=== PATIENT | female | born 1965 | race Caucasian/White ===

== ENCOUNTER 2018-08-23 12:24 | Outpatient (REF) | payer SELFPAY ==
[2018-08-23 20:16] LABS: ALT 29 U/L (12-78); AST 22 U/L (15-37); Albumin 3.9 g/dL (3.4-5.0); Alkaline Phosphatase 133 U/L (46-116); Anion Gap 10.3 mmol/L (3-11); BUN 14 mg/dL (7-18); Bilirubin, Total 0.3 mg/dL (0.2-1.0); CO2 28.7 mmol/L (21.0-32.0); CREATININE 0.68 mg/dL (0.55-1.02); Calcium 9.6 mg/dL (8.5-10.1); Chloride 104 mmol/L (98-107); Glucose 96 mg/dL (70-100); Potassium 3.9 mmol/L (3.5-5.1); Sodium 143 mmol/L (136-145); TSH 5.38 uIU/mL (0.358-3.74); Total Protein 7.9 g/dL (6.4-8.2)
[2018-08-24 09:15] LABS: Hemoglobin A1C 6.2 % (4.5-6.2)
[2018-08-24 17:04] LABS: COMMENT (LAB VIEW ONLY) 16.63 mg/dL; Microalb ug/mg Crea 87.8 ug/mg Cr
[2018-08-24 17:09] LABS: Iron 148 ug/dL (50-175)
[2018-08-24 18:19] LABS: PROTEIN < 6.0 mg/dL
[2018-08-24 18:47] LABS: Ferritin 16 ng/mL (8-388)
[2018-08-25 10:08] LABS: Hepatitis C Ab w Rflx HCV PCR Negative (NEGAT)
== END 2018-08-23 12:44 ==
LOC: NCHCN 12:24
PROVIDERS: PCP Internal Medicine; Visit Provider Nurse Practitioner Family
DX: I10 Essential (primary) hypertension (principal); E03.9 Hypothyroidism, unspecified; D50.9 Iron deficiency anemia, unspecified; E78.5 Hyperlipidemia, unspecified; R73.9 Hyperglycemia, unspecified; Z11.59 Encounter for screening for other viral diseases
CPT/HCPCS: 80053; 86803; 82043; 82565; 82570; 82728; 83036; 83540; 84156; 84443

== ENCOUNTER 2018-09-30 16:49 | Outpatient (REF) | payer SELFPAY ==
[2018-09-30 20:17] LABS: TSH 2.35 uIU/mL (0.358-3.74); Vitamin B12 892 pg/mL (193-986)
[2018-10-02 08:59] LABS: Vitamin D 25 Total 24.8 ng/ml (30-100)
== END 2018-09-30 17:09 ==
LOC: NCHCN 16:49
PROVIDERS: PCP Internal Medicine; Visit Provider Nurse Practitioner Family
DX: E03.9 Hypothyroidism, unspecified (principal); R10.2 Pelvic and perineal pain
CPT/HCPCS: 82306; 87077; 82607; 84443; 87086; 87186; 87480; 87510; 87660

== ENCOUNTER 2020-06-06 13:20 | Outpatient (REF) | payer SELFPAY ==
[2020-06-12 03:02] LABS: SARS-CoV-2 RNA Undetected (Undetected); SARS-CoV-2 Specimen Source Nasal
== END 2020-06-06 13:40 ==
LOC: NCHCN 13:20
PROVIDERS: PCP Internal Medicine; Visit Provider Nurse Practitioner Family
DX: Z20.828 Contact with and (suspected) exposure to other viral communicable diseases (principal)
CPT/HCPCS: U0003

== ENCOUNTER 2020-06-25 21:21 | Outpatient (REF) | payer SELFPAY ==
[2020-06-27 18:43] LABS: COVID-19 RT-PCR UVMMC Result Negative (Negative)
== END 2020-06-25 21:41 ==
LOC: NCHCN 21:21
PROVIDERS: PCP Internal Medicine; Visit Provider Nurse Practitioner Family
DX: Z20.828 Contact with and (suspected) exposure to other viral communicable diseases (principal)
CPT/HCPCS: U0003

== ENCOUNTER 2020-07-01 12:01 | Outpatient (REF) | payer SELFPAY ==
[2020-07-05 10:09] LABS: COVID-19 RT-PCR Result NEGATIVE (Negative)
== END 2020-07-01 12:21 ==
LOC: NCHCN 12:01
PROVIDERS: PCP Internal Medicine; Visit Provider Nurse Practitioner Family
DX: Z20.828 Contact with and (suspected) exposure to other viral communicable diseases (principal)
CPT/HCPCS: U0003

== ENCOUNTER 2020-07-08 19:19 | Outpatient (REF) | payer SELFPAY ==
[2020-07-11 21:24] LABS: COVID-19 RT-PCR Result NEGATIVE (Negative)
== END 2020-07-08 19:39 ==
LOC: NCHCN 19:19
PROVIDERS: PCP Internal Medicine; Visit Provider Nurse Practitioner Family
DX: Z11.59 Encounter for screening for other viral diseases (principal)
CPT/HCPCS: U0003

== ENCOUNTER 2020-07-15 16:17 | Outpatient (REF) | payer SELFPAY ==
[2020-07-18 00:11] LABS: COVID-19 RT-PCR Result NEGATIVE (Negative)
== END 2020-07-15 16:37 ==
LOC: NCHCN 16:17
PROVIDERS: PCP Internal Medicine; Visit Provider Nurse Practitioner Family
DX: Z11.59 Encounter for screening for other viral diseases (principal)
CPT/HCPCS: U0003

== ENCOUNTER 2020-07-22 09:33 | Outpatient (REF) | payer SELFPAY ==
--- OUTSIDE RECORDS SUMMARY | 2020-07-22 09:36 | XMS_ITS ---
:1965 Author Care Team Providers Name Role Phone AR GUADALUPE MD Primary Care Provider [phone] PASTORA LOMBARDI MD Chairman Of The Board [phone] Allergies Code Code System Name Reaction Severity Status Onset DARVOCET-N ? ? Active ? Medications Name Status Start Date Stop Date ? ? amoxicillin 500 mg capsule Completed 08/20/200509/08 1 (one) Cap: TID Celexa 20 mg tablet Completed 05/28/2009 05/28/2009 1 (one) Tablet: QD fluoxetine 20 mg capsule Completed 12/23/2011 012 1 Capsule: daily hydrocodone 5 mg-acetaminophen 325 mg tablet Completed 02/10/2013 1 (one) Tablet: every four to six hours as needed ibuprofen 800 mg tablet Completed 11/17/2011 05/16/20 15 1 (one) Tablet: tid - three times a day as needed levothyroxine Active ? Not available Lexapro 10 mg tablet Completed 07/29/2005 10/21/2005 1 (one) Tablet: Daily lorazepam 0.5 mg tablet Completed 2016 06/25/20 16 1 (one) Tablet: as directed Lotrel Active ? Not available Maxalt 5 mg tablet Completed 02/03/2005 02/17/2005 nicotine 21 mg/24 hr daily transdermal patch Completed 08/201306/06/2014 1 (one) Patch 24HR Patch 24HR: daily penicillin V potassium 250 mg tablet Completed 11/03/2004 02/17/2005 1 Tablet: TID Protonix 40 mg tablet,delayed release Completed 04/24/2013 04/24/[address]: daily Proventil HFA 90 mcg/actuation aerosol inhaler Completed 0 02/10/2013 05/16/2015 2 (two) puff(s): four times daily, as needed Toprol XL Active ? Not available trazodone 50 mg tablet Completed 06/30/2011 1 1 (one) Tablet: daily Tylenol-Codeine #3 300 mg-30 mg tablet Completed 2 07/12/2012 1-2 Tablet: Every 6 hours as needed Wellbutrin SR 150 mg tablet, 12 hr sustained-release Completed 07/02/2014 05/16/2015 1 (one) Tablet ER 12HR: three times daily Zantac 150 mg tablet Completed 10/21/2005 11/11/2007 1 (one) Tablet: BID Zithromax Z-Teodoro 250 mg tablet Completed 02/10/2013 as directed Tablet: daily Problems Name Status Onset Date Source ? Body Mass Index 30+ - Obesity Active ? Hi story Anemia Active ? History Generalized Anxiety Disorder Active ? His tory Nicotine Dependence Active ? History Depressive Disorder Active ? History Migraine Active ? History Carpal Tunnel Syndrome Active ? History Gastroesophageal Reflux Disease Active ? History Disorder of Digestive System Active ? His tory Senile Hyperkeratosis Active ? History Shoulder Joint Pain Active ? History Neck Pain Active ? History Lumbosacral Radiculopathy Active ? Histor y Backache Active ? History Pain in Limb Active ? History Asthenia Active ? History Lack of Energy Active ? History Symptom of Skin and Integumentary Tissue Active ? History Disorder of Hyperalimentation Active ? Hi story Speech Problem Active ? History Cough Active ? History Right Lower Quadrant Pain Active ? Histor y Gynecologic Examination Active ? History Procedure by Method Active ? History Pain in Left Knee Active ? History Bursitis of Left Hip Active ? History Procedures Date Name Performed by ? 07/26/2000 Tubal Ligation Information not avai lable ? Carpal Tunnel Surgery Information not av ailable 04/17/2020 US, Pelvis, Transabdominal + [facility] (Internal) Transvaginal [address] [place] [address] (Work Place) Results Lab Results Date Name Specimen Result Interpretation Description Value Range Status Address ? 09/18/2017 Venipuncture BLD ? Venpn* ? ? Final [facility] L [facility] (Internal) : [address] 09/18/2017 Microalbumin, UR High Malb 82.7 mg/L 5.0-16.7 F inal [place] Urine mg/L [facility] (Internal) : [address], [place] ? ? UR High U-crea 214 mg/dL 30-125 Final [place] , Spot mg/dL [facility] (Internal) : [address] t ? ? UR High Microa 38.6 ug/mg 0.0-30.0 Final Nor th lb/crea ug/mg [facility] (Internal) : [address] 09/18/2017 Lipid Panel, S High Chol 220 mg/dL 50-200 Tika l [place] Serum mg/dL [facility] (Internal) : [address] t ? ? S High Trig 297 mg/dL 10-150 Final [place] mg/dL [facility] (Internal) : [address] t ? ? S Low Hdl 31 mg/dL 40-60 Final [place] mg/dL [facility] (Internal) : [address] t ? ? S ? Ldl 130 mg/dL 0-130 Final [place] mg/dL [facility] (Internal) : [address] 09/18/2017 CMP, Serum or S ? g/r 97 mg/dL 74-106 Tika l [place] Plasma mg/dL [facility] (Internal) : [address] t ? ? S ? Bun 15 mg/dL 7-17 Final [place] mg/dL [facility] (Internal) : [address] t ? ? S ? Crea 0.70 mg/dL 0.52-1.04 Final Nor th mg/dL [facility] (Internal) : [address] t ? ? S ? Ca 9.8 mg/dL 8.4-10.2 Final [place] mg/dL [facility] (Internal) : [address] t ? ? S ? Na 144 mmol/L 137-145 Final [place] mmol/L [facility] (Internal) : [address] t ? ? S ? K 3.8 mmol/L 3.5-5.1 Final [place] mmol/L [facility] (Internal) : [address] t ? ? S ? Cl 104 mmol/L 98-107 Final [place] mmol/L [facility] (Internal) : [address] t ? ? S ? Tco2 28.0 mmol/L 22.0-30.0 Final No rth mmol/L [facility] ab (Internal) : [address] t ? ? S ? Tp 8.0 g/dL 6.3-8.2 Final [place] g/dL [facility] (Internal) : [address] t ? ? S ? Alb 4.3 g/dL 3.5-5.0 Final [place] g/dL [facility] (Internal) : [address] t ? ? S ? Tbil 0.4 mg/dL 0.2-1.3 Final [place] mg/dL [facility] (Internal) : [address] t ? ? S ? Alp 107 U/L 50-136 Final [place] U/L [facility] (Internal) : [address] t ? ? S ? Alt 31 U/L 9-52 U/L Final [place] (Sgpt) [facility] (Internal) : [address] t ? ? S ? Ast 28 U/L 14-36 U/L Final [place] (Sgot) [facility] (Internal) : [address] t 09/18/2017 TSH, Serum or S High Tsh 7.00 0.47-4.68 Fin [facility] Plasma u[IU]/mL u[IU]/mL [facility] (Internal) : [address] t 08/06/2017 Venipuncture BLD ? Venpn* ? ? Final [facility] (Internal) : [address] t 08/06/2017 Culture, BLD ? Final microbiolog ? Final [place] Blood y results [facility] (Internal) : [address] t 08/06/2017 Lactic Acid, S ? La 2.1 mmol/L 0.7-2.1 Fi nal [place] Blood mmol/L [facility] (Internal) : [address] t 08/06/2017 Culture, BLD ? Final microbiolog ? Final [place] Blood y results [facility] (Internal) : [address] t 08/06/2017 RBC BLD ? Aniso small ? Final [place] Morphology, [facility] (Internal) : [address] 08/06/2017 BMP, Serum or S High g/r 117 mg/dL 74-106 Fin al [place] Plasma mg/dL [facility] (Internal) : [address] t ? ? S ? Bun 9 mg/dL 7-17 Final [place] mg/dL [facility] (Internal) : [address] t ? ? S ? Crea 0.60 mg/dL 0.52-1.04 Final Nor th mg/dL [facility] (Internal) : [address] t ? ? S ? Ca 8.9 mg/dL 8.4-10.2 Final [place] mg/dL [facility] (Internal) : [address] t ? ? S Low Na 135 mmol/L 137-145 Final [place] mmol/L [facility] (Internal) : [address] t ? ? S Low K 3.4 mmol/L 3.5-5.1 Final [place] mmol/L [facility] (Internal) : [address] t ? ? S ? Cl 104 mmol/L 98-107 Final [place] mmol/L [facility] (Internal) : [address] t ? ? S ? Tco2 22.0 mmol/L 22.0-30.0 Final No rth mmol/L [facility] (Internal) : [address] 08/06/2017 CBC W/ Auto BLD ? Wbc 9.1 10*3/uL 5.0-10.0 F inal [place] Diff 10*3/uL [facility] (Internal) : [address] t ? ? BLD ? Rbc 4.78 4.10-5.30 Final [place] 10*6/uL 10*6/uL [facility] (Internal) : [address] ? ? BLD ? Hgb 12.4 g/dL 12.0-16.0 Final Nort h g/dL [facility] ab (Internal) : [address] ? ? BLD ? Hct 38.3 % 37.0-47.0 Final [place] % [facility] ab (Internal) : [address] ? ? BLD ? Mcv 80.1 fL 80.0-96.0 Final [facility] L ab (Internal) : [address] ? ? BLD Low Mch 25.9 pg 26.0-32.0 Final [facility] L ab (Internal) : [address] ? ? BLD ? Mchc 32.4 g/dL 31.0-35.0 Final Nort h g/dL [facility] ab (Internal) : [address] ? ? BLD High Rdw 15.8 % 11.5-14.5 Final [facility] L ab (Internal) : [address] ? ? BLD ? Plt 217 10*3/uL 130-450 Final Nort h 10*3/uL [facility] L ab (Internal) : [address] ? ? BLD ? Anc 6.36 ? Final [place] 10*3/uL [facility] (Internal) : [address] [place] ? ? BLD ? Neutro 70.3 % 40.0-75.0 Final [facility] L ab (Internal) : [address] ? ? BLD ? Lymph 20.7 % 20.0-50.0 Final [facility] L ab (Internal) : [address] ? ? BLD ? Arenac 7.5 % 2.0-10.0 Final [facility] ab (Internal) : [address] ? ? BLD Low Eos 0.8 % 1.0-6.0 % Final [facility] ab (Internal) : [address] ? ? BLD ? Baso 0.4 % 0.0-1.0 % Final [facility] ab (Internal) : [address] ? ? BLD ? Ig 0.3 % 0.0-0.9 % Final [facility] ab (Internal) : [address] 08/06/2017 Influenza NASAL ? Final microbiolog ? Final [place] (A+B) Ag, y results Coun try Qual, Rapid, Hosp ital Lab Nose (Internal) : [address], [place] 08/06/2017 Culture, UR ? Final microbiolog ? Final [place] Urine y results [facility] ab (Internal) : [address] 08/06/2017 sensitivities MISC ? Sens* ? ? Final [place] [I] [facility] ab (Internal) : [address] 08/06/2017 Urinalysis, UR ? UA-WBC 0-3 [hpf] 0-3 [hpf] F inal [place] Microscopic [facility] L ab (Internal) : [address] t ? ? UR ? UA-RBC 0-2 [hpf] 0-2 [hpf] Final [facility] ab (Internal) : [address] t ? ? UR ABNORMAL UA-david many [hpf] none seen Final [place] teria [hpf] [facility] ab (Internal) : [address] t ? ? UR ? UA-epi rare [hpf] none seen Final No rth thelial [hpf] [facility] ab (Internal) : [address] t ? ? UR ABNORMAL UA-muc rare [hpf] none seen Final [place] us [hpf] [facility] ab (Internal) : [address] 08/06/2017 Urinalysis, UR ? UA-col yellow pale Final [place] Dipstick, or yellow [facility] Reflex Micro Hosp ital Lab (Internal) : [address] t ? ? UR ABNORMAL UA-aden hazy clear Final [place] ear [facility] L ab (Internal) : [address] t ? ? UR ? UA-spe 1.015 1.003-1.0 Final [place] c Grav 35 [facility] L ab (Internal) : [address] t ? ? UR ? UA-pH 7.0 [pH] 4.6-8.0 Final [place] [pH] [facility] L ab (Internal) : [address] t ? ? UR ? UA-keiko negative negative Final [place] k Est [facility] L ab (Internal) : [address] t ? ? UR ABNORMAL UA-nit positive negative Final [facility] rite [facility] L ab (Internal) : [address], [place] ? ? UR ? UA-pro negative negative Final [place] t [facility] L ab (Internal) : [address] t ? ? UR ? UA-glu negative negative Final [place] c [facility] ab (Internal) : [address] ? ? UR ? UA-ket negative negative Final [place] one [facility] L ab (Internal) : [address] t ? ? UR ? UA-uro normal normal Final [place] gisella [facility] L ab (Internal) : [address] ? ? UR ? UA-gisella negative negative Final [place] i [facility] L ab (Internal) : [address] ? ? UR ? UA-blo negative negative Final [place] od [facility] L ab (Internal) : [address] t Past Encounters 04/17/2020 Pain in Pelvis Brad Quezada MD: [address] [place] [phone], Ph. Social History Tobacco Smoking Status Former Smoker Vaccine List Vaccine Type influenza, seasonal, injectable 06/06/2014?0.5 mL influenza, seasonal, injectable, preserv ative free 04/17/2011?0.5 mL tetanus toxoid, adsorbed 07/26/1994 Plan of Care Reminders Provider Appointments None ? ? recorded. Lab None ? ? recorded. Referral None ? ? recorded. Procedures None ? ? recorded. Surgeries None ? ? recorded. Imaging None ? ? recorded. Vitals 04/17/2020 01:20PM New Patient 30 Height 154.94 cm 10/16/2016 Height Weight 154.94 cm 84.46 kg 09/01/2016 Height Weight Blood Pressure 154.94 cm 84.46 kg 140/82 mm[Hg] 2016 Height Weight Blood Pressure 154.94 cm 84.82 kg 148/80 mm[Hg] 2015 Height Weight Blood Pressure 154.94 cm 85.77 kg 136/78 mm[Hg] 05/16/2015 Height Weight Blood Pressure 154.94 cm 82.55 kg 144/92 mm[Hg] 06/06/2014 Height Weight Blood Pressure 154.31 cm 82.1 kg 126/68 mm[Hg] 12/20/2013 Weight Blood Pressure 77.75 kg 134/86 mm[Hg] 11/21/2013 Height Weight Blood Pressure 154.31 cm 83.19 kg 154/88 mm[Hg] 05/31/2013 Height Weight Blood Pressure 154.31 cm 82.42 kg 138/72 mm[Hg] 04/24/2013 Height Weight Blood Pressure 154.31 cm 84.41 kg 150/70 mm[Hg] 02/10/2013 Weight Blood Pressure 85.87 kg 142/80 mm[Hg] 11/07/2012 Weight Blood Pressure 87.72 kg 128/72 mm[Hg] 10/07/2012 Weight Blood Pressure 87.77 kg 128/76 mm[Hg] 07/12/2012 Height Weight Blood Pressure 154.31 cm 85.18 kg 130/90 mm[Hg] 05/05/2012 Height Weight Blood Pressure 154.94 cm 85.37 kg 126/64 mm[Hg] 03/01/2012 Height Weight Blood Pressure 154.94 cm 85.73 kg 150/85 mm[Hg] 01/15/2012 Height Weight Blood Pressure 154.94 cm 85.73 kg 142/98 mm[Hg] 01/11/2012 Height Weight Blood Pressure 154.94 cm 86 kg 120/80 mm[Hg] 12/23/2011 Weight Blood Pressure 86.18 kg 142/92 mm[Hg] 12/03/2011 Height Weight Blood Pressure 154.94 cm 87.5 kg 130/86 mm[Hg] 11/17/2011 Height Weight Blood Pressure 154.94 cm 87.5 kg 142/90 mm[Hg] 09/24/2011 Weight 85.73 kg 07/31/2011 Weight Blood Pressure 85.73 kg 150/88 mm[Hg] 07/29/2011 Height Weight 154.94 cm 85.28 kg 06/30/2011 Weight Blood Pressure 84.82 kg 126/80 mm[Hg] 05/29/2011 Weight Blood Pressure 84.28 kg 136/80 mm[Hg] 05/13/2011 Height Weight Blood Pressure 156.21 cm 82.51 kg 130/90 mm[Hg] 04/30/2011 Height Weight Blood Pressure 154.94 cm 80.74 kg 136/92 mm[Hg] 04/17/2011 Weight Blood Pressure 82.19 kg 138/90 mm[Hg] 04/06/2011 Blood Pressure 120/78 mm[Hg] 03/17/2011 Weight Blood Pressure 78.38 kg 124/82 mm[Hg] 02/24/2011 Height Weight Blood Pressure 156.21 cm 78.52 kg 140/80 mm[Hg] 02/11/2011 Height Weight 156.21 cm 77.02 kg 01/16/2011 Height Weight Blood Pressure 157.48 cm 76.7 kg 132/78 mm[Hg] 12/26/2010 Weight Blood Pressure 74.21 kg 116/80 mm[Hg] 12/16/2010 Weight Blood Pressure 74.57 kg 122/90 mm[Hg] 12/01/2010 Height Weight Blood Pressure 157.48 cm 74.93 kg 124/80 mm[Hg] 08/05/2010 Weight Blood Pressure 73.94 kg 120/74 mm[Hg] 10/18/2009 Weight Blood Pressure 77.56 kg 136/90 mm[Hg] 09/18/2009 Height Weight Blood Pressure 154.94 cm 75.75 kg 108/68 mm[Hg] 05/28/2009 Weight Blood Pressure 75.75 kg 128/84 mm[Hg] 04/16/2009 Blood Pressure 128/80 mm[Hg] 03/21/2009 Height Weight Blood Pressure 154.94 cm 77.11 kg 130/82 mm[Hg] 11/25/2007 Height Weight Blood Pressure 153.67 cm 77.56 kg 130/80 mm[Hg] 11/11/2007 Weight Blood Pressure 78.93 kg 114/76 mm[Hg] 02/17/2006 Weight Blood Pressure 80.74 kg 112/84 mm[Hg] 02/15/2006 Height Weight Blood Pressure 154.94 cm 80.29 kg 108/70 mm[Hg] 11/18/2005 Weight Blood Pressure 78.02 kg 118/80 mm[Hg] 10/21/2005 Weight Blood Pressure 79.83 kg (1) 136/90 mm[Hg] (2) 132/90 mm[Hg] 09/09/2005 Weight Blood Pressure 78.02 kg 136/78 mm[Hg] 08/20/2005 Weight Blood Pressure 76.2 kg 104/64 mm[Hg] 07/29/2005 Weight Blood Pressure 77.11 kg 142/84 mm[Hg] 05/04/2005 Weight Blood Pressure 79.38 kg 132/72 mm[Hg] 04/07/2005 Weight Blood Pressure 77.11 kg 108/68 mm[Hg] 02/17/2005 Weight Blood Pressure 78.47 kg 120/70 mm[Hg] 02/03/2005 Weight Blood Pressure 78.02 kg 126/80 mm[Hg] 10/22/2004 Weight Blood Pressure 82.55 kg 130/80 mm[Hg] 08/22/2004 Height Weight Blood Pressure 154.94 cm 81.65 kg 112/68 mm[Hg]
[2020-07-24 21:31] LABS: COVID-19 RT-PCR Result NEGATIVE (Negative)
== END 2020-07-22 09:53 ==
LOC: NCHCN 09:33
PROVIDERS: PCP Internal Medicine; Visit Provider Nurse Practitioner Family
DX: Z11.59 Encounter for screening for other viral diseases (principal)
CPT/HCPCS: U0003

== ENCOUNTER 2020-08-05 12:58 | Outpatient (REF) | payer SELFPAY ==
[2020-08-06 21:54] LABS: COVID-19 RT-PCR Result NEGATIVE (Negative)
== END 2020-08-05 13:18 ==
LOC: NCHCN 12:58
PROVIDERS: PCP Internal Medicine; Visit Provider Internal Medicine
DX: Z11.52 Encounter for screening for COVID-19 (principal)
CPT/HCPCS: U0003

== ENCOUNTER 2020-09-09 16:37 | Outpatient (REF) | payer SELFPAY ==
[2020-09-10 19:36] LABS: COVID-19 RT-PCR UVMMC Result Negative (Negative)
== END 2020-09-09 16:38 | disposition home or self-care (01) ==
LOC: NCHCN 16:37
PROVIDERS: PCP Internal Medicine; Visit Provider Nurse Practitioner Family
DX: Z20.822 Contact with and (suspected) exposure to COVID-19 (principal)
CPT/HCPCS: U0003

== ENCOUNTER 2020-09-16 16:24 | Outpatient (REF) | payer SELFPAY ==
[2020-09-17 15:05] LABS: COVID-19 RT-PCR UVMMC Result Negative (Negative)
== END 2020-09-16 16:25 | disposition home or self-care (01) ==
LOC: NCHCN 16:24
PROVIDERS: PCP Internal Medicine; Visit Provider Physician Assistant
DX: Z20.822 Contact with and (suspected) exposure to COVID-19 (principal)
CPT/HCPCS: U0003

== ENCOUNTER 2020-09-23 13:46 | Outpatient (REF) | payer SELFPAY ==
[2020-09-24 15:01] LABS: COVID-19 RT-PCR UVMMC Result Negative (Negative)
== END 2020-09-23 13:47 | disposition home or self-care (01) ==
LOC: NCHCN 13:46
PROVIDERS: PCP Internal Medicine; Visit Provider Physician Assistant
DX: Z20.822 Contact with and (suspected) exposure to COVID-19 (principal)
CPT/HCPCS: U0003

== ENCOUNTER 2020-09-30 19:52 | Outpatient (REF) | payer SELFPAY ==
[2020-10-01 12:26] LABS: COVID-19 RT-PCR UVMMC Result Negative (Negative)
== END 2020-09-30 19:53 | disposition home or self-care (01) ==
LOC: NCHCN 19:52
PROVIDERS: PCP Internal Medicine; Visit Provider Internal Medicine
DX: Z20.822 Contact with and (suspected) exposure to COVID-19 (principal)
CPT/HCPCS: U0003

== ENCOUNTER 2020-10-07 10:54 | Outpatient (REF) | payer SELFPAY ==
[2020-10-08 11:02] LABS: COVID-19 RT-PCR UVMMC Result Negative (Negative)
== END 2020-10-07 10:55 | disposition home or self-care (01) ==
LOC: NCHCN 10:54
PROVIDERS: PCP Internal Medicine; Visit Provider Internal Medicine
DX: Z20.822 Contact with and (suspected) exposure to COVID-19 (principal)
CPT/HCPCS: U0003

== ENCOUNTER 2020-10-15 11:39 | Outpatient (REF) | payer SELFPAY ==
[2020-10-16 14:31] LABS: COVID-19 RT-PCR UVMMC Result Negative (Negative)
== END 2020-10-15 11:40 | disposition home or self-care (01) ==
LOC: NCHCN 11:39
PROVIDERS: PCP Internal Medicine; Visit Provider Internal Medicine
DX: Z20.822 Contact with and (suspected) exposure to COVID-19 (principal)
CPT/HCPCS: U0003

== ENCOUNTER 2020-10-28 11:53 | Outpatient (REF) | payer SELFPAY ==
[2020-10-30 18:40] LABS: COVID-19 RT-PCR UVMMC Result Negative (Negative)
== END 2020-10-28 11:54 | disposition home or self-care (01) ==
LOC: NCHCN 11:53
PROVIDERS: PCP Internal Medicine; Visit Provider Internal Medicine
DX: Z20.822 Contact with and (suspected) exposure to COVID-19 (principal)
CPT/HCPCS: U0003

== ENCOUNTER 2020-11-11 09:53 | Outpatient (REF) | payer SELFPAY ==
[2020-11-12 01:00] LABS: COVID-19 RT-PCR UVMMC Result Negative (Negative)
== END 2020-11-11 09:54 | disposition home or self-care (01) ==
LOC: NCHCN 09:53
PROVIDERS: PCP Internal Medicine; Visit Provider Nurse Practitioner Family
DX: Z20.822 Contact with and (suspected) exposure to COVID-19 (principal)
CPT/HCPCS: U0003

== ENCOUNTER 2020-11-19 14:52 | Outpatient (REF) | payer SELFPAY ==
[2020-11-20 10:18] LABS: COVID-19 RT-PCR UVMMC Result Negative (Negative)
== END 2020-11-19 14:53 | disposition home or self-care (01) ==
LOC: NCHCN 14:52
PROVIDERS: PCP Internal Medicine; Visit Provider Nurse Practitioner Family
DX: Z20.822 Contact with and (suspected) exposure to COVID-19 (principal)
CPT/HCPCS: U0003

== ENCOUNTER 2020-11-25 15:15 | Outpatient (REF) | payer SELFPAY ==
[2020-11-25 20:05] LABS: Iron 46 ug/dL (50-170)
[2020-11-25 20:11] LABS: ALT 35 U/L (14-59); AST 21 U/L (15-37); Albumin 3.6 g/dL (3.4-5.0); Alkaline Phosphatase 105 U/L (46-116); Anion Gap 9.8 mmol/L (3-11); BUN 18 mg/dL (7-18); Bilirubin, Total 0.3 mg/dL (0.2-1.0); CO2 30.2 mmol/L (21.0-32.0); CREATININE 0.6 mg/dL (0.55-1.02); Calcium 8.8 mg/dL (8.5-10.1); Calculated LDL 132 mg/dL (<100); Chloride 107 mmol/L (98-107); Cholesterol 219 mg/dL (<200); Glucose 102 mg/dL (74-106); HDL Cholesterol 33 mg/dL (40-60); Potassium 3.6 mmol/L (3.5-5.1); Sodium 147 mmol/L (136-145); TSH 19.48 uIU/mL (0.36-3.74); Total Protein 7.2 g/dL (6.4-8.2); Triglyceride 271 mg/dL (<150)
[2020-11-25 20:39] LABS: FREE T4 0.77 ng/dL (0.76-1.46)
[2020-11-26 16:40] LABS: T3, Total 132 ng/dL (97-169)
[2020-11-26 17:27] LABS: Thyroglobulin Antibody 27 U/mL (<=60); Thyroperoxidase Antibody >1300 U/mL (<=60)
[2020-11-27 13:09] LABS: COVID-19 RT-PCR UVMMC Result Negative (Negative)
== END 2020-11-25 15:16 | disposition home or self-care (01) ==
LOC: NCHCN 15:15
PROVIDERS: PCP Internal Medicine; Visit Provider Nurse Practitioner Family
DX: D50.9 Iron deficiency anemia, unspecified (principal); E03.9 Hypothyroidism, unspecified; E78.5 Hyperlipidemia, unspecified; I10 Essential (primary) hypertension; Z20.822 Contact with and (suspected) exposure to COVID-19
CPT/HCPCS: 80053; 80061; 86376; U0003; 83540; 84439; 84443; 84480

== ENCOUNTER 2021-05-12 09:09 | Outpatient (REF) | payer OTHER, SELFPAY ==
[2021-05-12 20:28] LABS: ALT 31 U/L (14-59); AST 20 U/L (15-37); Albumin 3.6 g/dL (3.4-5.0); Alkaline Phosphatase 97 U/L (46-116); BUN 15 mg/dL (7-18); Bilirubin, Total 0.3 mg/dL (0.2-1.0); CREATININE 0.7 mg/dL (0.55-1.02); Calcium 8.8 mg/dL (8.5-10.1); Calculated LDL 150 mg/dL (<100); Chloride 105 mmol/L (98-107); Cholesterol 237 mg/dL (<200); Glucose 101 mg/dL (74-106); HDL Cholesterol 31 mg/dL (40-60); Potassium 3.9 mmol/L (3.5-5.1); Sodium 142 mmol/L (136-145); TSH (W/Ref FT4) 13.25 uIU/mL (0.36-3.74); Total Protein 7.2 g/dL (6.4-8.2); Triglyceride 281 mg/dL (<150)
[2021-05-12 21:25] LABS: FREE T4 0.88 ng/dL (0.76-1.46)
== END 2021-05-12 09:10 | disposition home or self-care (01) ==
LOC: NCHCN 09:09
PROVIDERS: PCP Internal Medicine; Visit Provider Nurse Practitioner Family
DX: I10 Essential (primary) hypertension (principal); E78.5 Hyperlipidemia, unspecified; E03.9 Hypothyroidism, unspecified
CPT/HCPCS: 80053; 80061; 84439; 84443

== ENCOUNTER 2021-07-14 10:52 | Outpatient (REF) | payer OTHER, SELFPAY ==
[2021-07-14 21:14] LABS: TSH 7.44 uIU/mL (0.36-3.74)
== END 2021-07-14 10:53 | disposition home or self-care (01) ==
LOC: NCHCN 10:52
PROVIDERS: PCP Internal Medicine; Visit Provider Nurse Practitioner Family
DX: E03.9 Hypothyroidism, unspecified (principal)
CPT/HCPCS: 84443

== ENCOUNTER 2021-09-15 16:37 | Outpatient (REF) | payer OTHER, SELFPAY ==
[2021-09-15 20:23] LABS: TSH (W/Ref FT4) 1.68 uIU/mL (0.36-3.74)
== END 2021-09-15 16:38 | disposition home or self-care (01) ==
LOC: NCHCN 16:37
PROVIDERS: PCP Internal Medicine; Visit Provider Nurse Practitioner Family
DX: E03.9 Hypothyroidism, unspecified (principal)
CPT/HCPCS: 84443

== ENCOUNTER 2021-09-26 12:18 | Outpatient (REF) | payer OTHER, SELFPAY ==
[2021-09-28 14:44] LABS: COVID-19 RT-PCR UVMMC Result Negative (Negative)
== END 2021-09-26 12:19 | disposition home or self-care (01) ==
LOC: NCHCN 12:18
PROVIDERS: PCP Internal Medicine; Visit Provider Nurse Practitioner Family
DX: Z20.822 Contact with and (suspected) exposure to COVID-19 (principal)
CPT/HCPCS: U0003

== ENCOUNTER 2021-11-24 10:46 | Outpatient (REF) | payer OTHER, SELFPAY ==
--- NOTE | 2021-11-24 14:55 | PAPFT_PTH ---
PATIENT: Sheree Spring LOC: [facility]#:[id number] AGE/SX: 56/F ROOM: RE11/24/[address]: Len Lee : 1965 BED: DIS: 11/24/2021 SPEC #: [id number] RECD: 11/25/21 10:59 STATUS: WERO REQ #: [id number] SALLY: 11/24/21 14:[address]: Ghislaine Lee DEPT: [facility] Cytology RECD BY: Livia Euceda ENTERED: 11/25/21 11:00 SP TYPE: PAPFT OTHR DR: Bryce Douglass Tissues: 1 - CX/ENDOCX FOR PAP SMEARS Procedures: PAP THIN PREP/UVM Screening HPV DNA PROBE Comments: [id number]
== END 2021-11-24 10:47 | disposition home or self-care (01) ==
LOC: NCHCN 10:46
PROVIDERS: PCP Internal Medicine; Visit Provider Nurse Practitioner Family
DX: Z12.4 Encounter for screening for malignant neoplasm of cervix (principal); Z11.51 Encounter for screening for human papillomavirus (HPV)
CPT/HCPCS: 88142; 87624

== ENCOUNTER 2022-02-12 15:39 | Outpatient (REF) | payer OTHER, SELFPAY ==
[2022-02-12 19:02] LABS: Abs Immature Grans 0.03 10^3/uL (0.0-0.06); Absolute Basophil Count 0.05 10^3/uL (0.0-0.2); Absolute Eosinophil Count 0.16 10^3/uL (0.0-0.7); Absolute Lymphocyte Count 4.12 10^3/uL (1.2-3.4); Absolute Monocyte Count 0.61 10^3/uL (0.1-0.8); Absolute Neutrophil Count 5.22 10^3/uL (1.2-6.7); Basophils % 0.5; Eosinophils % 1.6; HCT 45.1 % (36.0-46.0); HGB 15.4 g/dL (11.2-15.7); Immature Grans % 0.3; Lymphocytes % 40.4; MCH 30.9 pg (27.0-33.0); MCHC 34.1 % (32.0-36.0); MCV 91 fL (80-95); MPV 11.3 fL (8.0-11.0); Neutrophils % 51.2; Platelet Count 196 10^3/uL (130-400); RBC 4.98 10^6/uL (3.93-5.22); RDW 13.1 % (11.7-14.6); RDW-SD 42.9 fL; WBC 10.19 10^3/uL (4.4-10.8)
[2022-02-12 19:22] LABS: TSH (W/Ref FT4) 11.23 uIU/mL (0.36-3.74)
[2022-02-12 19:47] LABS: FREE T4 1.06 ng/dL (0.76-1.46)
== END 2022-02-12 15:40 | disposition home or self-care (01) ==
LOC: NCHCN 15:39
PROVIDERS: PCP Internal Medicine; Visit Provider Nurse Practitioner Family
DX: R53.83 Other fatigue (principal)
CPT/HCPCS: 84439; 84443; 85025

== ENCOUNTER 2022-05-07 15:21 | Outpatient (REF) | payer OTHER, SELFPAY ==
[2022-05-07 19:27] LABS: ALT 23 U/L (14-59); AST 22 U/L (15-37); Albumin 3.2 g/dL (3.4-5.0); Alkaline Phosphatase 86 U/L (46-116); Anion Gap 6.5 mmol/L (3-11); BUN 14 mg/dL (7-18); Bilirubin, Total 0.3 mg/dL (0.2-1.0); CO2 27.5 mmol/L (21.0-32.0); CREATININE 0.6 mg/dL (0.55-1.02); Calcium 9.2 mg/dL (8.5-10.1); Chloride 103 mmol/L (98-107); Estimated GFR 104.63 (mL/min/1.73m2); Glucose 98 mg/dL (74-106); Potassium 3.9 mmol/L (3.5-5.1); Sodium 137 mmol/L (136-145); Total Protein 7.3 g/dL (6.4-8.2)
== END 2022-05-07 15:22 | disposition home or self-care (01) ==
LOC: NCHCN 15:21
PROVIDERS: PCP Internal Medicine; Visit Provider Nurse Practitioner Family
DX: I10 Essential (primary) hypertension (principal); E03.9 Hypothyroidism, unspecified
CPT/HCPCS: 80053; 84443

== ENCOUNTER 2022-08-31 16:02 | Outpatient (REF) | payer OTHER, SELFPAY ==
[2022-08-31 19:33] LABS: TSH (W/Ref FT4) 1.72 uIU/mL (0.36-3.74)
== END 2022-08-31 16:03 | disposition home or self-care (01) ==
LOC: NCHCN 16:02
PROVIDERS: PCP Internal Medicine; Visit Provider Nurse Practitioner Family
DX: E03.9 Hypothyroidism, unspecified (principal)
CPT/HCPCS: 84443

== ENCOUNTER 2022-10-21 13:24 | Outpatient (REF) | payer OTHER, SELFPAY ==
[2022-10-21 20:14] LABS: Cholesterol 259 mg/dL (<200); HDL Cholesterol 30 mg/dL (40-60); Triglyceride 746 mg/dL (<150)
[2022-10-21 20:38] LABS: LDL CHOLESTEROL 135 mg/dL (<100)
== END 2022-10-21 13:25 | disposition home or self-care (01) ==
LOC: NCHCN 13:24
PROVIDERS: PCP Internal Medicine; Visit Provider Nurse Practitioner Family
DX: E78.5 Hyperlipidemia, unspecified (principal)
CPT/HCPCS: 80061; 83721

== ENCOUNTER 2022-10-26 09:10 | Outpatient (REF) | payer OTHER, SELFPAY ==
[2022-10-26 19:42] LABS: Calculated LDL 140 mg/dL (<100); Cholesterol 229 mg/dL (<200); HDL Cholesterol 34 mg/dL (40-60); Triglyceride 279 mg/dL (<150)
== END 2022-10-26 09:11 | disposition home or self-care (01) ==
LOC: NCHCN 09:10
PROVIDERS: PCP Internal Medicine; Visit Provider Nurse Practitioner Family
DX: E78.1 Pure hyperglyceridemia (principal)
CPT/HCPCS: 80061

== ENCOUNTER 2024-05-18 11:48 | Outpatient (REF) | payer MEDICAID, SELFPAY ==
--- OUTSIDE RECORDS SUMMARY | 2024-05-18 11:52 | XMS_ITS | Encounter Summary ---
Author Organization [facility] Address [address] [place] [address] Care Team Providers Care Tape Edge Machine Operator Name Role Phone Unknown, Provider Primary Care Provider Encounter Details Date Type Department Care Team (Late st Contact Info) Description 11/26/2021 Lab Requisition [facility] Pathology & Laboratory Medicine - [facility] [address] [place] [address] Ghislaine Lee, HEAD PAPER TESTER [address], [place] [id number] Encounter for other general examination Social History Tobacco Use Types Packs/Day Years Used Date Smoking Tobacco: Never Assessed Sex and Gender Information Value Date Recorded Sex Assigned at Not on file Gender Identity Not on file Sexual Orientation Not on file documented as of this encounter Plan of Treatment Not on file documented as of this encounter Procedures Procedure Name Priority Date/Time Associated Diagnosis Comments PAP TEST Today 11/24/2021 2:55 EDT Encounter for other general examination HPV DNA DETECTION WITH GENOTYPING, PCR Today 11/24/2021 2:55 EDT Encounter for other general examination documented in this encounter Results * HUMAN PAPILLOMAVIRUS (HPV) DETECTION-HIGH RISK TYPES (11/24/2021 2:55 EDT) HPV other High Risk types, PCR Negative Negative 12/02/2021 15:13 EDT [facility] Comment:No E6 or E7 mRNA is detected from HPV types 16,18,31,33,35,39,45,51,52,56,58,59,66, and 68 by health outcomes liaison mediated amplification. Papanicolaou smear specimen (specimen) CERVIX UTERI STRUCTURE / Unknown 11/24/2021 2:55 EDT 12/01/2021 8:31 EDT Ghislaine Lee NP MICROBIOLOGY - GENER AL ORDERABLES [facility] [address] [place] [address] * PAP TEST (11/24/2021 2:55 EDT) Specimens A. Cervix and/or Endocervix , ThinPrep Imaging System with Manual Evaluation 12/02/2021 15:13 EDT [facility] Specimen Adequacy Satisfactory for Evaluation - transformation zone component present 12/02/2021 15:13 EDT [facility] General Categorization Negative for intraepithelial lesion or malignancy 12/02/2021 15:13 T [facility] Attestation . 12/02/2021 15:13 T [facility] at 1513 Clinical History SEE BELOW 12/03/19 15:13 EDT [facility] HPV The result for the Human Papillomavirus (HPV) Detection-High Risk Types is Negative. No E6 or E7 mRNA is detected from HPV types 16,18,31,33,35,39 ,45,51,52,56,58,5 9,66, and 68 by health outcomes liaison mediated amplification.Silke ting was performed on specimen [id number] and was resulted on 12/02/2021 1440 EDT by YESY, LAB INSTRUMENT RESULTS IN 12/02/2021 15:13 EDT [facility] Performing Lab [facility] 12/02/2021 15:13 EDT [facility] Scanned Images 12/02/2021 15:13 EDT [facility] Papanicolaou smear specimen (specimen) CERVIX UTERI STRUCTURE / Unknown 11/24/2021 2:55 EDT 11/26/2021 13:34 EDT Ghislaine H Chute HEAD PAPER TESTER PATHOLOGY ORDERABLES [facility] [address] [place] [address] documented in this encounter Visit Diagnoses Diagnosis Encounter for other general examination documented in this encounter Care Teams Tape Edge Machine Operator Relationship Specialty Start Date End Date Unknown, Provider, PCP - General 09/18/16 documented as of this encounter
--- OUTSIDE RECORDS SUMMARY | 2024-05-18 11:52 | XMS_ITS | Encounter Summary ---
Author Organization [facility] Address [address] [place] [address] Care Team Providers Care Photoengraver Name Role Phone Unknown, Provider Primary Care Provider Encounter Details Date Type Department Care Team (Late st Contact Info) Description 07/02/2020 Lab Requisition [facility] Pathology & Laboratory Medicine - [facility] [address] [place] [address] Outr Resulting Lab, Provider Social History Tobacco Use Types Packs/Day Years Used Date Smoking Tobacco: Never Assessed Sex and Gender Information Value Date Recorded Sex Assigned at Not on file Gender Identity Not on file Sexual Orientation Not on file documented as of this encounter Plan of Treatment Not on file documented as of this encounter Procedures Procedure Name Priority Date/Time Associated Diagnosis Comments DO NOT ORDER STANDALONE - [facility] COVID TEST Today 07/01/2020 9:00 EST COVID-19 TESTING Routine 07/01/2020 9:00 EST documented in this encounter Results * DO NOT ORDER STANDALONE - [facility] COVID TEST (07/01/2020 9:00 EST) COVID-19 rt-PCR Result NEGATIVE Negative 07/05/2020 7:18 EST [facility] Comment: 2019-novel Coronavirus (2019-nCoV) not detected by the qRT-PCR assay. Consider testing for other respiratory viruses or re-collecting for 2019-nCoV testing. Note: Optimum timing for peak viral levels during infections caused by 2019-nCoV have not been determined. Collection of multiple specimens from the same patient may be necessary to detect the virus. Limitations Positive results are indicative of active infection with SARS-CoV-2 but do not rule out bacterial infection or co-infection with other viruses. The agent detected may not be the definite cause of disease. In addition, detection of viral RNA may not indicate the presence of infectious virus or that SARS-CoV-2 is the causative agent for clinical symptoms. Negative results do not preclude SARS-CoV-2 infection and should not be used as the sole basis for patient management decisions. Negative results must be combined with clinical observations, patient history, and epidemiological information. False negative results may also occur if amplification inhibitors are present in the specimen or if inadequate numbers of organisms are present in the specimen. Optimum specimen types and timing for peak viral levels during infections caused by SARS-CoV-2 have not been fully determined. Collection of multiple specimens (types and time points) from the same patient may be necessary to detect the virus. The test was validated for use with upper respiratory specimens obtained via nasopharyngeal or oropharyngeal swabs in VTM, UTM, M4, M5, M6, saline, and MTM media. The performance of this test has not been established for other specimens. Specimens collected using other FDA recommended Specimen Collection Materials listed in the FDA COVID-19 Diagnostic [employer] communication (October 19, 2019) are processed with the caveat that they were not all validated for use with this test and the result must be interpreted in this context. Furthermore, a false negative results may occur if a specimen is improperly collected, transported or handled. If the virus mutates in the RT-PCR target region, SARS-CoV-2 may not be detected or may be detected less predictably. Inhibitors or other types of interference may produce a false negative result. An interference study evaluating the effect of common cold medications was not performed. This test is not FDA-cleared but its performance characteristics were established by our CLIA-certified, CAP-accredited, high complexity laboratory in accordance with CLIA regulations, College of [employer] (CAP) guidelines (Oct 12, 2019), and FDA guidance (Sep 23, 2019). This test is only for use under the Food and Drug Administration's Emergency Use Authorization. Swab ENTIRE NASOPHARYNX / Unknown 07/01/2020 9:00 EST 07/02/2020 18:20 EST Provider Outr Resulting Lab MICROBIOLOGY - GENERAL ORDERABLES [facility] [place] * COVID-19 TESTING (07/01/2020 9:00 EST) COVID-19 rt-PCR Result NEGATIVE Negative 07/05/2020 10:02 EST [facility] Comment: 2019-novel Coronavirus (2019-nCoV) not detected by the qRT-PCR assay. Consider testing for other respiratory viruses or re-collecting for 2019-nCoV testing. Note: Optimum timing for peak viral levels during infections caused by 2019-nCoV have not been determined. Collection of multiple specimens from the same patient may be necessary to detect the virus. Limitations Positive results are indicative of active infection with SARS-CoV-2 but do not rule out bacterial infection or co-infection with other viruses. The agent detected may not be the definite cause of disease. In addition, detection of viral RNA may not indicate the presence of infectious virus or that SARS-CoV-2 is the causative agent for clinical symptoms. Negative results do not preclude SARS-CoV-2 infection and should not be used as the sole basis for patient management decisions. Negative results must be combined with clinical observations, patient history, and epidemiological information. False negative results may also occur if amplification inhibitors are present in the specimen or if inadequate numbers of organisms are present in the specimen. Optimum specimen types and timing for peak viral levels during infections caused by SARS-CoV-2 have not been fully determined. Collection of multiple specimens (types and time points) from the same patient may be necessary to detect the virus. The test was validated for use with upper respiratory specimens obtained via nasopharyngeal or oropharyngeal swabs in VTM, UTM, M4, M5, M6, saline, and MTM media. The performance of this test has not been established for other specimens. Specimens collected using other FDA recommended Specimen Collection Materials listed in the FDA COVID-19 [employer] communication (October 19, 2019) are processed with the caveat that they were not all validated for use with this test and the result must be interpreted in this context. Furthermore, a false negative results may occur if a specimen is improperly collected, transported or handled. If the virus mutates in the RT-PCR target region, SARS-CoV-2 may not be detected or may be detected less predictably. Inhibitors or other types of interference may produce a false negative result. An interference study evaluating the effect of common cold medications was not performed. This test is not FDA-cleared but its performance characteristics were established by our CLIA-certified, CAP-accredited, high complexity laboratory in accordance with CLIA regulations, College of [employer]ologists (CAP) guidelines (Oct 12, 2019), and FDA guidance (Sep 23, 2019). This test is only for use under the Food and Drug Administration's Emergency Use Authorization. Performing Lab [facility] 07/05/2020 10:02 EST [facility] Swab 07/01/2020 9:00 EST 07/02/2020 18:20 EST Provider Outr Resulting Lab MICROBIOLOGY - GENERAL ORDERABLES [facility] [address] [place], [place] [id number] [place] [address] LABORATORY [place], [place] documented in this encounter Visit Diagnoses Not on filedocumented in this encounter Care Teams Photoengraver Relationship Specialty Start Date End Date Unknown, Provider, PCP - General 09/18/16 documented as of this encounter
--- OUTSIDE RECORDS SUMMARY | 2024-05-18 11:52 | XMS_ITS | Encounter Summary ---
Author Organization [facility] Address [address] [place] [address] Care Team Providers Care Machine Pan Greaser Name Role Phone Unknown, Provider Primary Care Provider [phone] Encounter Details Date Type Department Care Team (Late st Contact Info) Description 09/23/2020 Lab Requisition [facility] Pathology & Laboratory Medicine - [address] [address] Outr Resulting Lab, Provider Social History Tobacco [...] Procedure Name Priority Date/Time Associated Diagnosis Comments ZZCOVID-19 TEST [facility] LAB PCR Today 09/23/2020 9:00 EST COVID-19 TESTING Routine 09/23/2020 9:00 EST documented in this encounter Results * COVID-19 TEST [facility] PCR (09/23/2020 9:00 EST) Swab ENTIRE NASOPHARYNX / Unknown 09/23/2020 9:00 EST 09/23/2020 22:16 EST Provider Outr Resulting Lab MICROBIOLOGY - GENERAL ORDERABLES [facility] [address] [place] [address] * COVID-19 TESTING (09/23/2020 9:00 EST) COVID-19 rt-PCR Result Negative Negative 09/24/2020 14:56 EST [facility] Comment: This test has not been FDA cleared or approved. This test has been authorized by FDA under an EUA for use by authorized laboratories. This test has been authorized only for detection of nucleic acid from 2019-nCoV, not for any other viruses or pathogens. This test is only authorized for the duration of the declaration that circumstances exist justifying the authorization of emergency use of in vitro diagnostic tests for detection and/or diagnosis of 2019-nCoV under section 564(b)(1) of Act, 21 U.S.C ?? 360bbb-3(b) (1), unless the authorization is terminated or revoked sooner. Negative results do not preclude 2019-nCoV infection and should not be used as the sole basis for treatment or other patient management decisions. Negative results must be combined with clinical observations, patient history, and epidemiological information. This test was developed and its performance characteristics determined by [facility]. It has not been cleared or approved by the US Food and Drug Administration. FDA does not require this test to go through premarket FDA review. This test is used for clinical purposes. It should not be regarded as investigational or for research. This laboratory is certified under the Clinical Laboratory Improvement Amendments (CLIA) as qualified to perform high complexity clinical laboratory testing. This test is based on the CDC COVID-19 Emergency Use Authorization (EUA) assay, with minor modification as defined by the FDA Performed on the [employer] 7 Pro RT-PCR System. Performing Lab [facility] 09/24/2020 14:56 EST [facility] Swab 09/23/2020 9:00 EST 09/23/2020 22:16 EST Provider Outr Resulting Lab MICROBIOLOGY - GENERAL ORDERABLES [facility] [address] [place] [address] documented in this encounter Visit Diagnoses Not on filedocumented in this encounter Care Teams Machine Pan Greaser Relationship Specialty Start Date End Date Unknown, Provider, PCP - General 09/18/16 documented as of this encounter
--- OUTSIDE RECORDS SUMMARY | 2024-05-18 11:52 | XMS_ITS | Encounter Summary ---
Author Organization [facility] Address [address] [place] [address] Care Team Providers Care Organ Builder Name Role Phone Unknown, Provider Primary Care Provider Encounter Details Date Type Department Care Team ([facility] st Contact Info) Description 09/16/2016 Results Only [facility] [phone] Emily Wiggins, PLISSE MACHINE OPERATOR [address] [place] [address] Social History Tobacco Use Types Packs/Day Years Used Date Smoking Tobacco: Never Assessed Sex and Gender Information Value Date Recorded Sex Assigned at Not on file Gender Identity Not on file Sexual Orientation Not on file documented as of this encounter Plan of Treatment Not on file documented as of this encounter Procedures Procedure Name Priority Date/Time Associated Diagnosis Comments PAP TEST- RESULT ONLY Routine 09/16/2016 0:00 EST documented in this encounter Results * PAP TEST- RESULT ONLY (09/16/2016 0:00 EST) Pathology Report: CYTOPATHOLOGY REPORT Reports generated via electronic interface contain original data; however they are lacking the format of the original report. Caution should be taken when reading/interpreti ng unformatted reports. Name: ? SHEREE BOYCE ? Accession #: ? [id number] ? : ? 1965 (Age: 51) ??F ?Collect Date: ? 09/16/2016 ? Location: ? [facility] ? Receive Date: ? 09/18/2016 ? Provider: EMILY WIGGINS PLISSE MACHINE OPERATOR Copy to: ? Final Report SPECIMEN ADEQUACY ? Satisfactory for Evaluation - transformation zone component absent GENERAL CATEGORIZATION ? Negative for Intraepithelial Lesion or Malignancy INTERPRETATION ? Reactive cellular changes associated with inflammation present (includes repair). Shift in uzma present suggestive of bacterial vaginosis. Menstrual/Pregnanc y Status: ??Post Menopausal Hormonal/Contracep tive status: None Specimen/Source: ??Pap Test, Cervix, ThinPrep Imaging System with manual evaluation Document reviewed and electronically signed by: ? DARIO GALINDO MD ? Report ??Date: 09/29/2016 15:42 HPV with Pap Test ? Date Ordered: ? 09/29/2016 ? Status: ?? Signed Out ?Date Complete: ? 09/30/2016 ? By: ??System Interface ? Date Reported: ? 09/30/2016 ? Interpretation RESULT: Negative for HPV. No E6 or E7 mRNA is detected from HPV types 16,18,31,33,35, 39,45,51,52,56,58, 59,66, and 68 by plant specialist mediated amplification. Comments Document reviewed and electronically signed by: ? System Interface ? Report date: 09/30/2016 By the signature above, the attending physician certifies that he/she has personally conducted a gross and/or microscopic examination of the described specimens and rendered or confirmed the above diagnosis. End of Report [facility] 09/16/2016 09/18/2016 Emily Wiggins NP PATHOLOGY ORDERABLES [facility] [address] [place] [address] documented in this encounter Visit Diagnoses Not on filedocumented in this encounter Care Teams Organ Builder Relationship Specialty Start Date End Date Unknown, Provider, PCP - General 09/18/16 documented as of this encounter
--- OUTSIDE RECORDS SUMMARY | 2024-05-18 11:52 | XMS_ITS | Encounter Summary ---
Author Organization [facility] Address [address] [place] [address] Care Team Providers Care Tv Host Name Role Phone Unknown, Provider Primary Care Provider Encounter Details Date Type Department Care Team (Late st Contact Info) Description 11/19/2020 Lab Requisition [facility] Pathology & Laboratory Medicine - [address] [address] Outr Resulting Lab, Provider Social History Tobacco [...] Priority Date/Time Associated Diagnosis Comments ZZCOVID-19 TEST [facility] PCR Today 11/19/2020 9:00 EDT COVID-19 TESTING Routine 11/19/2020 9:00 EDT documented in this encounter Results * COVID-19 TEST [facility] PCR (11/19/2020 9:00 EDT) Swab ENTIRE NASOPHARYNX / Unknown 11/19/2020 9:00 EDT 11/19/2020 21:35 EDT Provider Outr Resulting Lab MICROBIOLOGY - GENERAL ORDERABLES [facility] [address] [place] [address] * COVID-19 TESTING (11/19/2020 9:00 EDT) COVID-19 rt-PCR Result Negative Negative 11/20/2020 10:13 EDT [facility] Comment: This test has [...] clinical observations, patient history, and epidemiological information. Performed on the [employer] Fusion instrument Performing Lab [facility] 11/20/2020 10:13 EDT [facility] Swab 11/19/2020 9:00 EDT 11/19/2020 21:35 EDT Provider Outr Resulting Lab MICROBIOLOGY - GENERAL ORDERABLES [facility] [address] [place] [address] documented in this encounter Visit Diagnoses Not on filedocumented in this encounter Care Teams Tv Host Relationship Specialty Start Date End Date Unknown, Provider, PCP - General 09/18/16 documented as of this encounter
--- OUTSIDE RECORDS SUMMARY | 2024-05-18 11:52 | XMS_ITS | Encounter Summary ---
Author Organization [facility] Address [address] [place] [address] Care Team Providers Care Wardrobe Assistant Name Role Phone Unknown, Provider Primary Care Provider Encounter Details Date Type Department Care Team (Late st Contact Info) Description 07/16/2020 Lab Requisition [facility] Pathology & Laboratory Medicine - [facility] [address] [place] [address] Outr Resulting Lab, Provider Social History Tobacco [...] ORDER STANDALONE - [facility] COVID TEST Today 07/15/2020 9:00 EST COVID-19 TESTING Routine 07/15/2020 9:00 EST documented in this encounter Results * DO NOT ORDER STANDALONE - [facility] COVID TEST (07/15/2020 9:00 EST) COVID-19 rt-PCR Result NEGATIVE Negative 07/17/2020 21:19 EST [facility] Comment: 2019-novel Coronavirus [...] in accordance with CLIA regulations, College of [place] [employer]ologists (CAP) guidelines (Oct 12, 2019), and FDA guidance (Sep 23, 2019). This test is only for use under the Food and Drug Administration's Emergency Use Authorization. Swab ENTIRE NASOPHARYNX / Unknown 07/15/2020 9:00 EST 07/16/2020 16:04 EST Provider Outr Resulting Lab MICROBIOLOGY - GENERAL ORDERABLES [employer] [place] * COVID-19 TESTING (07/15/2020 9:00 EST) Pathologist [facility] COVID-19 rt-PCR Result NEGATIVE Negative 07/18/2020 0:[address] [facility] Comment: 2019-novel Coronavirus (2019-nCoV) not [...] in accordance with CLIA regulations, College of [place] [employer]ologists (CAP) guidelines (Oct 12, 2019), and FDA guidance (Sep 23, 2019). This test is only for use under the Food and Drug Administration's Emergency Use Authorization. Performing Lab [facility] 07/18/2020 0:06 EST [facility] Swab 07/15/2020 9:00 EST 07/16/2020 16:04 EST Provider Outr Resulting Lab MICROBIOLOGY - GENERAL ORDERABLES [facility] [address] [place], [place] [address] [place] [address] LABORATORY [place] documented in this encounter Visit Diagnoses Not on filedocumented in this encounter Care Teams Wardrobe Assistant Relationship Specialty Start Date End Date Unknown, Provider, PCP - General 09/18/16 documented as of this encounter
--- OUTSIDE RECORDS SUMMARY | 2024-05-18 11:52 | XMS_ITS | Encounter Summary ---
Author Organization [facility] Address [address] [place] [address] Care Team Providers Care Electronic Warfare Operator Name Role Phone Unknown, Provider Primary Care Provider Encounter Details Date Type Department Care Team (Late st Contact Info) Description 10/15/2020 Lab Requisition [facility] Pathology & Laboratory Medicine - [address] [address] Outr Resulting Lab, Provider Social History Tobacco [...] Comments ZZCOVID-19 TEST [facility] PCR Today 10/15/2020 9:00 EDT COVID-19 TESTING Routine 10/15/2020 9:00 EDT documented in this encounter Results * COVID-19 TEST [facility] PCR (10/15/2020 9:00 EDT) Swab ENTIRE NASOPHARYNX / Unknown 10/15/2020 9:00 EDT 10/15/2020 20:10 EDT Provider Outr Resulting Lab MICROBIOLOGY - GENERAL ORDERABLES [facility] [address] [place] [address] * COVID-19 TESTING (10/15/2020 9:00 EDT) COVID-19 rt-PCR Result Negative Negative 10/16/2020 14:25 EDT [facility] Comment: This test has not [...] developed and its performance characteristics determined by [facility]. It has not been cleared or approved [...] defined by the FDA Performed on the [employer] 7 Pro RT-PCR System. Performing Lab [facility] 10/16/2020 14:25 EDT [facility] Swab 10/15/2020 9:00 EDT 10/15/2020 20:10 EDT Provider Outr Resulting Lab MICROBIOLOGY - GENERAL ORDERABLES [facility] [address] [place] [address] documented in this encounter Visit Diagnoses Not on filedocumented in this encounter Care Teams Electronic Warfare Operator Relationship Specialty Start Date End Date Unknown, Provider, PCP - General 09/18/16 documented as of this encounter
--- OUTSIDE RECORDS SUMMARY | 2024-05-18 11:52 | XMS_ITS | Encounter Summary ---
Author Organization [facility] Address [address] [place] [address] Care Team Providers Care Dust Mill Operator Name Role Phone Unknown, Provider Primary Care Provider Encounter Details Date Type Department Care Team (Late st Contact Info) Description 09/09/2020 Lab Requisition [facility] Pathology & Laboratory Medicine - [address] [address] Outr Resulting Lab, Provider Social History Tobacco [...] Comments ZZCOVID-19 TEST [facility] PCR Today 09/09/2020 9:00 EST COVID-19 TESTING Routine 09/09/2020 9:00 EST documented in this encounter Results * COVID-19 TEST [facility] PCR (09/09/2020 9:00 EST) Swab ENTIRE NASOPHARYNX / Unknown 09/09/2020 9:00 EST 09/09/2020 20:44 EST Provider Outr Resulting Lab MICROBIOLOGY - GENERAL ORDERABLES [facility] [address] [place] [address] * COVID-19 TESTING (09/09/2020 9:00 EST) COVID-19 rt-PCR Result Negative Negative 09/10/2020 19:32 EST [facility] Comment: This test was developed and its performance characteristics determined by [facility]. It has not been cleared or approved [...] defined by the FDA Performed on the [employer] Pro RT-PCR System. This test has not been FDA cleared [...] clinical observations, patient history, and epidemiological information. Performing Lab [facility] 09/10/2020 19:32 EST [facility] Swab 09/09/2020 9:00 EST 09/09/2020 20:44 EST Provider Outr Resulting Lab MICROBIOLOGY - GENERAL ORDERABLES [facility] [address] [place] [address] documented in this encounter Visit Diagnoses Not on filedocumented in this encounter Care Teams Dust Mill Operator Relationship Specialty Start Date End Date Unknown, Provider, PCP - General 09/18/16 documented as of this encounter
--- OUTSIDE RECORDS SUMMARY | 2024-05-18 11:52 | XMS_ITS | Encounter Summary ---
Author Organization [facility] Address [address] [place] [address] Care Team Providers Care Custom Clothier Name Role Phone Unknown, Provider Primary Care Provider Encounter Details Date Type Department Care Team (Late st Contact Info) Description 09/27/2021 Lab Requisition [facility] Pathology & Laboratory Medicine - [address] [address] Outr Resulting Lab, Provider Social History Tobacco [...] Priority Date/Time Associated Diagnosis Comments ZZCOVID-19 TEST [facility] PCR Today 09/26/2021 9:00 EST COVID-19 TESTING Routine 09/26/2021 9:00 EST documented in this encounter Results * COVID-19 TEST [facility] PCR (09/26/2021 9:00 EST) Swab 09/26/2021 9:00 EST 09/27/2021 21:28 EST Provider Outr Resulting Lab MICROBIOLOGY - GENERAL ORDERABLES [facility] [address] [place] [address] * COVID-19 TESTING (09/26/2021 9:00 EST) COVID-19 rt-PCR Result Negative Negative 09/28/2021 14:40 EST [facility] Comment: This test has [...] history, and epidemiological information. Performed on the [employer] Fusion instrument Performing Lab [place] [facility] 09/28/2021 14:40 EST [facility] Swab 09/26/2021 9:00 EST 09/27/2021 21:28 EST Provider Outr Resulting Lab MICROBIOLOGY - GENERAL ORDERABLES [facility] [address] [place] [address] documented in this encounter Visit Diagnoses Not on filedocumented in this encounter Care Teams Custom Clothier Relationship Specialty Start Date End Date Unknown, Provider, PCP - General 09/18/16 documented as of this encounter
--- OUTSIDE RECORDS SUMMARY | 2024-05-18 11:52 | XMS_ITS | Encounter Summary ---
Author Organization [facility] Address [address] [place] [address] Care Team Providers Care Nursing Professor Name Role Phone Unknown, Provider Primary Care Provider Encounter Details Date Type Department Care Team (Late st Contact Info) Description 06/26/2020 Lab Requisition [facility] Pathology & Laboratory Medicine - [address] [address] Outr Resulting Lab, Provider Social History Tobacco [...] Comments ZZCOVID-19 TEST [facility] LAB PCR Today 06/26/2020 9:10 EST COVID-19 TESTING Routine 06/26/2020 9:10 EST documented in this encounter Results * COVID-19 TEST [facility] LAB PCR (06/26/2020 9:10 EST) Swab ENTIRE NASOPHARYNX / Unknown 06/26/2020 9:10 EST 06/26/2020 21:05 EST Provider Outr Resulting Lab MICROBIOLOGY - GENERAL ORDERABLES [facility] [address] [place] [address] * COVID-19 TESTING (06/26/2020 9:10 EST) COVID-19 rt-PCR Result Negative Negative 06/27/2020 18:36 EST [facility] Comment: Negative results do not preclude 2019-nCoV infection and should not be used as the sole basis for treatment or other patient management decisions. Negative results must be combined with clinical observations, patient history, and epidemiological information. This test was developed and its performance characteristics determined by [facility]. It has not been cleared or approved [...] defined by the FDA Performed on the [employer] Flex. Performing Lab [facility] Hospital Lab 06/27/2020 18:36 EST [facility] Swab 06/26/2020 9:10 EST 06/26/2020 21:05 EST Provider Outr Resulting Lab MICROBIOLOGY - GENERAL ORDERABLES [facility] [address] [place] [address] documented in this encounter Visit Diagnoses Not on filedocumented in this encounter Care Teams Nursing Professor Relationship Specialty Start Date End Date Unknown, Provider, PCP - General 09/18/16 documented as of this encounter
--- OUTSIDE RECORDS SUMMARY | 2024-05-18 11:52 | XMS_ITS | Continuity of Care Document ---
Author Organization [facility] Address [address] [place] [address] Care Team Providers Care Coach Professional Athletes Name Role Phone [facility] Primary [facility] Physician Encounter [facility] [id number] Date(s): 08/22/22 - 08/22/[address] [address] Encounter Diagnosis Skin avulsion(Discharge Diagnosis) - 08/22/22 Discharge Disposition: Home or Self Care Attending Physician: Haider Cruz MD Admitting Physician: Haider Cruz MD Allergies, Adverse Reactions, Alerts Substance Reaction Severity Status Darvocet-N 50 Unknown Active Latex Rash Moderate Active Functional Status 08/22/22 Family Member Travel History No recent t ravel Recent Travel History No recent travel Other exposure to Infectious Disease Non e Immunizations Given and Recorded Vaccine Date Status Refusal Reason tetanus/diphth/pertuss (Tdap) adult/adol 08/22/22 Given influenza virus vaccine, inactivated 06/06/14 Eduardo rded influenza virus vaccine, inactivated 04/17/11 Eduardo rded Td(adult) unspecified formulation 07/26/94 Recorde d Medications amLODIPine 0 Refill(s) Start Date: 08/22/22 Status: Ordered aspirin 81 mg oral capsule 0 Refill(s) Start Date: 08/22/22 Status: Ordered FLUoxetine 0 Refill(s) Start Date: 08/22/22 Status: Ordered levothyroxine 0 Refill(s) Start Date: 08/22/22 Status: Ordered metoprolol succinate 0 Refill(s) Start Date: 08/22/22 Status: Ordered Problem List Condition Confirmation Course Effective Dates Status Health Status Informant Anemia Confirmed Active Asthenia Confirmed Active Backache Confirmed Active Body mass index 30+ - obesity Confirmed Active Bursitis of left hip Confirmed Active Carpal tunnel syndrome Confirmed Active Cough Confirmed Active Depressive disorder Confirmed Active Disorder of digestive system Confirmed Active Disorder of hyperalimentation Confirmed Active Gastroesophageal reflux disease Confirmed Active Generalized anxiety disorder Confirmed Active Lack of energy Confirmed Active Left knee pain Confirmed Active Lumbosacral radiculopathy Confirmed Active Migraine Confirmed Active Neck pain Confirmed Active Nicotine dependence Confirmed Active Pain in limb Confirmed Active Right lower quadrant pain Confirmed Active Senile hyperkeratosis Confirmed Active Shoulder joint pain Confirmed Active Speech problem Confirmed Active Symptom of skin and integumentary tissue Confirmed Active Procedures Procedure Date Related Diagnosis Body Site Status Tubal ligation 07/25/00 Completed Carpal tunnel release Com pleted Vital Signs Most recent to oldest [Reference Range]: 1 Temperature Temporal Artery [36-38 Deg C ] 36.4 Deg C (08/22/22 7:56 PM) Peripheral Pulse Rate [60-100 bpm] 81 bp m (08/22/22 7:56 PM) Respiratory Rate [12-24 br/min] 18 br/mi n (08/22/22 7:56 PM) Blood Pressure [90-140/60-90 mmHg] 151/9 9mmHg *HI* (08/22/22 7:56 PM) Weight Dosing 89.00 kg (08/22/22 8:05 PM) Weight Estimated 89.00 kg (08/22/22 7:56 PM) Height/Length Dosing 155.000 cm (08/22/22 8:05 PM) Height/Length Estimated 155.000 cm (08/22/22 7:56 PM) Social History Social History Type Response Tobacco Former tobacco user Tobacco Use:. Sex Female Hospital Discharge Instructions Patient Education 08/22/2022 20:07:16 Deep Skin Avulsion Deep Skin Avulsion A deep skin avulsion is a type of open wound. It often results from a severe injury (trauma) that tears away all layers of the skin or an entire body part. The areas of the body that are most often affected include the face, lips, ears, nose, and fingers. A deep skin avulsion may make structures below the skin become visible. You may be able to see muscle, bone, nerves, and blood vessels. A deep skin avulsion can also damage important structures beneath the skin. These include bones, tendons, nerves, or blood vessels. What are the causes? This condition may be caused by an injury, such as: ??? Being crushed. ??? Falling against a jagged surface. ??? An animal bite. ??? A gunshot wound. ??? A severe burn. ??? Being dragged, such as in a bicycle or motorcycle accident. What are the signs or symptoms? Symptoms of this condition include: ??? Pain. ??? Numbness. ??? Swelling. ??? Bleeding, which may be heavy. How is this diagnosed? This condition may be diagnosed with a medical history and physical exam. You may also have X-rays done. How is this treated? Treatment for this condition depends on how large and deep the wound is and where it is located. Treatment usually starts with: ??? Stopping the bleeding. ??? Washing out the wound with a germ-free (sterile) solution. After initial treatment, the wound may be closed or left open to heal. ??? Wounds that are small and clean may be closed with stitches (sutures). ??? Wounds that cannot be closed with sutures may be covered with a piece of skin (graft) or your own skin flap. ??? Wounds that are hard to close or that may become infected may be left open. These wounds heal over time. You may also be treated with medicine, such as: ??? Antibiotic medicine. ??? Pain medicine. ??? Tetanus shot. Follow these instructions at home: Medicines ??? If you were prescribed an antibiotic medicine, take or apply it as told by your health care provider. Do not stop taking or using the antibiotic even if your condition improves. ??? Take cwnw-dax-bnicbxg and prescription medicines only as told by your health care provider. ??? If you were prescribed a pain medicine, take it 30 minutes or more before you do any wound care, or as told by your health care provider. ??? Ask your health care provider if the medicine prescribed to you requires you to avoid driving or using machinery. Wound care ??? Follow instructions from your health care provider about how to take care of your wound. Make sure you: ??? Wash your hands with soap and water for at least 20 seconds before and after you change your bandage (dressing). If soap and water are not available, use hand marketing planning manager. ??? Change your dressing as told by your health care provider. ??? Leave sutures, skin glue, or adhesive strips in place. These skin closures may need to stay in place for 2 weeks or longer. If adhesive strip edges start to loosen and curl up, you may trim the loose edges. Do not remove adhesive strips completely unless your health care provider tells you to do that. ??? Clean the wound each day, or as told by your health care provider: ??? Wash the wound with mild soap and water. ??? Rinse the wound with water to remove all soap. ??? Pat the wound dry with a clean towel. Do not rub it. ??? Cover the wound with a clean dressing. ??? Keep your dressing clean and dry. Do not take baths, swim, use a hot tub, or do anything that would put your wound under water until your health care provider approves. ??? Check your wound every day for signs of infection. Check for: ??? More redness, swelling, or pain. ??? More fluid or blood. ??? Warmth. ??? Pus or a bad smell. ??? Do not scratch or pick at the wound. General instructions ??? Raise (elevate) the injured area above the level of your heart while you are sitting or lying down. ??? Do not use any products that contain nicotine or tobacco, such as cigarettes, e-cigarettes, andchewing tobacco. These may delay wound healing. If you need help quitting, ask your health care provider. ??? Eat a healthy diet to help your wound heal. This includes eating foods rich in protein, vitaminA, and vitamin C. ??? Keep all follow-up visits. This is important. Contact a health care provider if: ??? You have pain that does not get better with medicine. ??? You have any of these signs of infection: ??? More redness, swelling, or pain around your wound. ??? More fluid or blood coming from your wound. ??? A fever. ??? You got a tetanus shot and you have swelling, severe pain, redness, or bleeding at the injection site. ??? You are nauseous or you vomit. ??? You notice something coming out of the wound, such as wood or glass. Get help right away if: ??? You have a red streak going away from your wound. ??? A wound that was closed breaks open. ??? The wound is bleeding, and the bleeding does not stop with gentle pressure. ??? You have trouble breathing. ??? The wound is on your hand or foot and: ??? You cannot properly move a finger or toe. ??? Your fingers or toes look pale or bluish. Summary ??? A deep skin avulsion is a type of injury that can damage important structures beneath the skin. ??? A wound may be closed or left open to heal. This depends on the size and location of the wound and whether it is likely to become infected. ??? Follow instructions from your health care provider about how to take care of your wound. ??? Contact your health care provider if you have increased redness, swelling, or pain around your wound, or if your pain is not controlled with medicine. This information is not intended to replace advice given to you by your health care provider. Make sure you discuss any questions you have with your health care provider. Document Revised: 10/16/2020 Document Reviewed: 10/16/2020 [employer] Patient Education ?? 2021 [employer]. Follow Up Care 08/22/2022 19:56:38 With:Follow up with primary care provider Address: When:1 to 2 days Comments:You been seen in the emergency department and no emergent medical condition has been identified. ??It is recommended that you follow-up with your primary care provider within the next??48 hours. ??Ifyour condition worsens or you are unable to??arrange for appropriate follow-up please??reach out tot emergency department by phone or return to the emergency department for repeat evaluation. Physician Emergency department Note * Haider Cruz MD: PERFORM Event Display: ED Note Physician Authored Date: [id number] WING ESPINAL :1965 Age:57 years Sex:Female Visit Date:08/22/2022 Primary Care Physician: Bryce La MD Basic Information Time Seen: Haider Cruz MD / 08/22/2022 20:20 Chief Complaint Patient slipped on deck and injured her right 5th finger, hasn't stopped bleeding since 1514 today History Of Present Illness: Patient slipped on deck and injured her right 5th finger, hasn't stopped bleeding since 1514 today.??No other injuries.?? She fell down some stairs. ??Complaining of only pain in the hand. Review of Systems: Constitutional:?No??fevers,?No??chills,?No??sweats ?? Respiratory:?No??shortness of breath,?No??cough Cardiovascular:?No??Chest pain,?No??palpitations,?No??syncope Gastrointestinal:?Nonausea,?No??vomiting,?No??diarrhea Genitourinary:?No??hematuria ?? Musculoskeletal:??No??back pain,??No??neck pain,??No??joint pain,??No??muscle pain,??No??decreased range of motion Integumentary:?No??rash,?No??pruritus,?No??abrasions Neurologic: Alert & oriented X 4 Physical Exam Vitals & Measurements T:??36.4?C ??(Temporal Artery)?? HR:??81??(Peripheral)?? RR:??18?? BP:??151/99?? SpO2:??98%?? HT:??155.000??cm?? WT:??89.00??kg??(Estimated)?? Pain Score:??9?? O2 Therapy:??Room air?? General: Alert and oriented, well nourished,?No??acute distress Eye: PERRL, EOMI,?Normal??conjunctiva HENT: Normocephalic,??Normal?? hearing, moist oral mucosa,?No??scleral icterus Neck:??FROM,??No??JVD Lungs: Non-labored?? respiration Heart:?Normal?? rate,?Regular??rhythm,?No??peripheral edema, Adequate peripheral perfusion Abdomen: Soft, non-tender, non-distended,?Normal?? bowel sounds,?No??masses Musculoskeletal:?Normal?? range of motion and strength,?No??tenderness,?No??swelling Skin:??Linear avulsion over the right fifth digit from her ring Neurologic: Awake, alert and oriented X4, CN II-XII intact, Steady Gait Medical Decision Making: MDM Patient presented with [skin avulsion of the right fifth digit]. History obtained from [patient, parent, caregiver, EMS]. Patient was nontoxic, stable. Ambulatory. Exam as above. ?? Differential diagnosis considered. Overall presentation is consistent with [superficial skin injury]. Low suspicion for [linear ligamentous injury]. Patient was treated with [wound care??and??tetanus vaccination] with improvement in symptoms. Considered escalation of care, but patient stable for outpatient management. Disposition: Discussed need to follow up diagnostics, including incidental findings. Discharged with instructions to obtain outpatient follow up of patient???s symptoms and findings, with strict return precautions if patient develops new or worsening symptoms. ?? Wound care administered??skin left in place to act as a??biologic bandage.?? Recommend follow-upin 48 hours for wound check either here with us or with the primary care provider. Procedure No Qualifying Data Assessment/Plan 1.??Skin avulsion??T14.8XXA Orders: Discharge Patient, 08/22/22 21:07:00 EST, Home Independently, Constant Indicator Patient Education Deep Skin Avulsion Follow Up With When Contact Information Follow up with primary care provider Within 1 to 2 days Additional Instructions: You been seen in the emergency department and no emergent medical condition has been identified. ??It is recommended that you follow-up with your primary care provider withinthe next??48 hours. ??If your condition worsens or you are unable to??arrange for appropriate follow-up please??reach out to the emergency department by phone or return to the emergency department for repeat evaluation. Medication Reconciliation Unchanged amLODIPine ?? aspirin (aspirin 81 mg oral capsule) ?? FLUoxetine ?? levothyroxine ?? metoprolol (metoprolol succinate) Problem List/Past Medical History Ongoing Anemia Asthenia Backache Body mass index 30+ - obesity Bursitis of left hip Carpal tunnel syndrome Cough Depressive disorder Disorder of digestive system Disorder of hyperalimentation Gastroesophageal reflux disease Generalized anxiety disorder Lack of energy Left knee pain Lumbosacral radiculopathy Migraine Neck pain Nicotine dependence Pain in limb Right lower quadrant pain Senile hyperkeratosis Shoulder joint pain Speech problem Symptom of skin and integumentary tissue Historical No qualifying data Procedure/Surgical History ???Tubal ligation (07/26/2000)???Carpal tunnel release Medication Administration Given Avitene, 0.5 g, Topical Boostrix (Tdap), 0.5 mL, IM LET topical gel, 1 EA, Topical Allergies Latex??(Rash) Darvocet-N 50 Social History Electronic Cigarette/Vaping Electronic Cigarette Use: Never. Tobacco Former tobacco user Tobacco Use:. Family History Cancer: Father and Brother. Diabetes mellitus: Father. Heart disease: Mother and Father. Hypertension: Mother and Father. Postmenopausal osteoporosis: Mother. Renal failure: Mother. Stroke: Father. Electronically Signed on 08/22/22 11:46 PM Haider Cruz MD Emergency department Discharge instructions * Haider Cruz MD: PERFORM Event Display: ED Discharge Information Authored Date: [id number] WING ESPINAL :1965 Age:57 years Sex:Female Visit Date:08/22/2022 Primary Care Physician: Bryce La MD Discharge Instructions We would like to thank you for allowing us to assist you with your healthcare needs. The following includes patient education materials and information regarding your injury/illness. Diagnosis from Today's Visit Skin avulsion Discharge Vitals Temperature??(Temporal Artery) 97.5 ??F (36.4 ??C) Heart Rate??(Peripheral) 81 Respiratory Rate?? 18 Blood Pressure?? 151/99?? Height?? 61.02 in (155.000 cm) Weight??(Estimated) 196.24 lb (89.00 kg) Allergies Latex??(Rash) Darvocet-N 50 What to Do Next You Need to Schedule the Following Appointments Follow Up with??Follow up with primary care provider When:??Within 1 to 2 days Why: You been seen in the emergency department and no emergent medical condition has been identified. ??It is recommended that you follow-up with your primary care provider within the next??48 hours.??If your condition worsens or you are unable to??arrange for appropriate follow-up please??reach out to the emergency department by phone or return to the emergency department for repeat evaluation. You were treated today on an emergency basis; it may be aquino to contact your primary care provider to notify them of your visit today. You may have been referred to your regular doctor or a specialist, please follow up as instructed. If your condition worsens or you can't get in to see the doctor, contact the Emergency Department. Medications What When Instructions Next Dose Unchanged amLODIPine Unchanged aspirin (aspirin 81 mg oral capsule) Unchanged FLUoxetine Unchanged levothyroxine Unchanged metoprolol (metoprolol succinate) Education Materials Deep Skin Avulsion A deep skin avulsion is a type of open wound. It often results from a severe injury (trauma) that tears away all layers of the skin or an entire body part. The areas of the body that are most often affected include the face, lips, ears, nose, and fingers. A deep skin avulsion may make structures below the skin become visible. You may be able to see muscle, bone, nerves, and blood vessels. A deep skin avulsion can also damage important structures beneath the skin. These include bones, tendons, nerves, or blood vessels. What are the causes? This condition may be caused by an injury, such as: ? Being crushed. ? Falling against a jagged surface. ? An animal bite. ? A gunshot wound. ? A severe burn. ? Being dragged, such as in a bicycle or motorcycle accident. What are the signs or symptoms? Symptoms of this condition include: ? Pain. ? Numbness. ? Swelling. ? Bleeding, which may be heavy. How is this diagnosed? This condition may be diagnosed with a medical history and physical exam. You may also have X-rays done. How is this treated? Treatment for this condition depends on how large and deep the wound is and where it is located. Treatment usually starts with: ? Stopping the bleeding. ? Washing out the wound with a germ-free (sterile) solution. After initial treatment, the wound may be closed or left open to heal. ? Wounds that are small and clean may be closed with stitches (sutures). ? Wounds that cannot be closed with sutures may be covered with a piece of skin (graft) or your own skin flap. ? Wounds that are hard to close or that may become infected may be left open. These wounds heal over time. You may also be treated with medicine, such as: ? Antibiotic medicine. ? Pain medicine. ? Tetanus shot. Follow these instructions at home: Medicines ? If you were prescribed an antibiotic medicine, take or apply it as told by your health care provider. Do not stop taking or using the antibiotic even if your condition improves. ? Take bfhe-cgz-vvcocvy and prescription medicines only as told by your health care provider. ? If you were prescribed a pain medicine, take it 30 minutes or more before you do any wound care, oras told by your health care provider. ? Ask your health care provider if the medicine prescribed to you requires you to avoid driving or using machinery. Wound care ? Follow instructions from your health care provider about how to take care of your wound. Make sure you: ? Wash your hands with soap and water for at least 20 seconds before and after you change your bandage (dressing). If soap and water are not available, use hand marketing planning manager. ? Change your dressing as told by your health care provider. ? Leave sutures, skin glue, or adhesive strips in place. These skin closures may need to stay in place for 2 weeks or longer. If adhesive strip edges start to loosen and curl up, you may trim the looseedges. Do not remove adhesive strips completely unless your health care provider tells you to do that. ? Clean the wound each day, or as told by your health care provider: ? Wash the wound with mild soap and water. ? Rinse the wound with water to remove all soap. ? Pat the wound dry with a clean towel. Do not rub it. ? Cover the wound with a clean dressing. ? Keep your dressing clean and dry. Do not take baths, swim, use a hot tub, or do anything that wouldput your wound under water until your health care provider approves. ? Check your wound every day for signs of infection. Check for: ? More redness, swelling, or pain. ? More fluid or blood. ? Warmth. ? Pus or a bad smell. ? Do not scratch or pick at the wound. General instructions ? Raise (elevate) the injured area above the level of your heart while you are sitting or lying down. ? Do not use any products that contain nicotine or tobacco, such as cigarettes, e- cigarettes, and chewing tobacco. These may delay wound healing. If you need help quitting, ask your health care provider. ? Eat a healthy diet to help your wound heal. This includes eating foods rich in protein, vitamin A, and vitamin C. ? Keep all follow-up visits. This is important. Contact a health care provider if: ? You have pain that does not get better with medicine. ? You have any of these signs of infection: ? More redness, swelling, or pain around your wound. ? More fluid or blood coming from your wound. ? A fever. ? You got a tetanus shot and you have swelling, severe pain, redness, or bleeding at the injection site. ? You are nauseous or you vomit. ? You notice something coming out of the wound, such as wood or glass. Get help right away if: ? You have a red streak going away from your wound. ? A wound that was closed breaks open. ? The wound is bleeding, and the bleeding does not stop with gentle pressure. ? You have trouble breathing. ? The wound is on your hand or foot and: ? You cannot properly move a finger or toe. ? Your fingers or toes look pale or bluish. Summary ? A deep skin avulsion is a type of injury that can damage important structures beneath the skin. ? A wound may be closed or left open to heal. This depends on the size and location of the wound and whether it is likely to become infected. ? Follow instructions from your health care provider about how to take care of your wound. ? Contact your health care provider if you have increased redness, swelling, or pain around your wound, or if your pain is not controlled with medicine. This information is not intended to replace advice given to you by your health care provider. Make sure you discuss any questions you have with your health care provider. Document Revised: 10/16/2020 Document Reviewed: 10/16/2020 [employer] Patient Education ?? 2021 [employer] Tests Performed Medications and Immunizations Administered Given Avitene, 0.5 g, Topical LET topical gel, 1 EA, Topical Patient/Wood Type Cutter Signature Patient Name:AQUILESRUSTYWING GAMEZ I have received this information and my questions have been answered. Patient/Wood Type Cutter Name: Patient/Wood Type Cutter Signature: Relationship to Patient: Witness Name/Signature: Date: Electronically Signed on: 08/22/2022 21:07 ESTSigned by:JONNIE Emergency department Note * Brielle Martel M: PERFORM Event Display: ED Notes Authored Date: [id number] Patient Care team information Personnel Name: Bryce La MD Address: Address: [address] [address]
--- OUTSIDE RECORDS SUMMARY | 2024-05-18 11:52 | XMS_ITS | Encounter Summary ---
Author Organization [facility] Address [address] [place] [address] Care Team Providers Care Draw Machine Operator Name Role Phone Unknown, Provider Primary Care Provider Encounter Details Date Type Department Care Team (Late st Contact Info) Description 11/26/[address] [facility] Pathology & Laboratory Medicine - [address] [address] Outr Resulting Lab, Provider Social History Tobacco [...] Comments ZZCOVID-19 TEST [facility] LAB PCR Today 11/25/2020 9:30 EDT COVID-19 TESTING Routine 11/25/2020 9:30 EDT documented in this encounter Results * COVID-19 TEST [facility] LAB PCR (11/25/2020 9:30 EDT) Swab ENTIRE NASOPHARYNX / Unknown 11/25/2020 9:30 EDT 11/26/2020 16:16 EDT Provider Outr Resulting Lab MICROBIOLOGY - GENERAL ORDERABLES [facility] [address] [place] [address] * COVID-19 TESTING (11/25/2020 9:30 EDT) COVID-19 rt-PCR Result Negative Negative 11/27/2020 13:[address] [facility] Comment: This test has [...] clinical observations, patient history, and epidemiological information. Testing was performed using the rocky SARS-CoV-2 assay ([employer] on the Rocky 6800 System Performing Lab Rocky 6800 [facility] Lab 11/27/2020 13:[address] [facility] Swab 11/25/2020 9:30 EDT 11/26/2020 16:16 EDT Provider Outr Resulting Lab MICROBIOLOGY - GENERAL ORDERABLES [facility] [address] [place] [address] documented in this encounter Visit Diagnoses Not on filedocumented in this encounter Care Teams Draw Machine Operator Relationship Specialty Start Date End Date Unknown, Provider, PCP - General 09/18/16 documented as of this encounter
--- OUTSIDE RECORDS SUMMARY | 2024-05-18 11:52 | XMS_ITS | Encounter Summary ---
Author Organization [facility] Address [address] [place] [address] Care Team Providers Care Senior Product Development Engineer Name Role Phone Unknown, Provider Primary Care Provider Encounter Details Date Type Department Care Team (Late st Contact Info) Description 07/23/2020 Lab Requisition [facility] Pathology & Laboratory Medicine - [facility] [address] [place] [address] Outr Resulting Lab, Provider Social History Tobacco [...] ORDER STANDALONE - BROAD COVID TEST Today 07/22/2020 9:00 EST COVID-19 TESTING Routine 07/22/2020 9:00 EST documented in this encounter Results * DO NOT ORDER STANDALONE - BROAD COVID TEST (07/22/2020 9:00 EST) COVID-19 rt-PCR Result NEGATIVE Negative 07/24/2020 19:00 EST [facility] Comment: 2019-novel Coronavirus [...] in accordance with CLIA regulations, College of [place] Pathologists (CAP) guidelines (Oct 12, 2019), and FDA guidance (Sep 23, 2019). This test is only for use under the Food and Drug Administration's Emergency Use Authorization. Swab ENTIRE NASOPHARYNX / Unknown 07/22/2020 9:00 EST 07/23/2020 16:07 EST Provider Outr Resulting Lab MICROBIOLOGY - GENERAL ORDERABLES [employer] [place], [place] * COVID-19 TESTING (07/22/2020 9:00 EST) COVID-19 rt-PCR Result NEGATIVE Negative 07/24/2020 21:26 EST [facility] Comment: 2019-novel Coronavirus (2019-nCoV) not [...] in accordance with CLIA regulations, College of [place] Pathologists (CAP) guidelines (Oct 12, 2019), and FDA guidance (Sep 23, 2019). This test is only for use under the Food and Drug Administration's Emergency Use Authorization. Performing Lab [facility] 07/24/2020 21:26 EST [facility] Swab 07/22/2020 9:00 EST 07/23/2020 16:07 EST Provider Outr Resulting Lab MICROBIOLOGY - GENERAL ORDERABLES [facility] [address] [place], [place] [id number] [place] [address] LABORATORY [place], [place] documented in this encounter Visit Diagnoses Not on filedocumented in this encounter Care Teams Senior Product Development Engineer Relationship Specialty Start Date End Date Unknown, Provider, PCP - General 09/18/16 documented as of this encounter
--- OUTSIDE RECORDS SUMMARY | 2024-05-18 11:52 | XMS_ITS | Encounter Summary ---
Author Organization [facility] Address [address] [place] [address] Care Team Providers Care Accessioner Name Role Phone Unknown, Provider Primary Care Provider Encounter Details Date Type Department Care Team (Late st Contact Info) Description 10/29/2020 Lab Requisition [facility] Pathology & Laboratory Medicine - [address] [address] Outr Resulting Lab, Provider Social History Tobacco [...] Comments ZZCOVID-19 TEST [facility] PCR Today 10/28/2020 9:00 EDT COVID-19 TESTING Routine 10/28/2020 9:00 EDT documented in this encounter Results * COVID-19 TEST [facility] PCR (10/28/2020 9:00 EDT) Swab ENTIRE NASOPHARYNX / Unknown 10/28/2020 9:00 EDT 10/29/2020 16:03 EDT Provider Outr Resulting Lab MICROBIOLOGY - GENERAL ORDERABLES [facility] [address] [place] [address] * COVID-19 TESTING (10/28/2020 9:00 EDT) COVID-19 rt-PCR Result Negative Negative 10/30/2020 18:36 EDT [facility] Comment: This test [...] developed and its performance characteristics determined by [facility]. It has not been cleared or [...] defined by the FDA Performed on the GANTECo 7 Flex RT-PCR System. Performing Lab [facility] Lab 10/30/2020 18:36 EDT [facility] Swab 10/28/2020 9:00 EDT 10/29/2020 16:03 EDT Provider Outr Resulting Lab MICROBIOLOGY - GENERAL ORDERABLES [facility] [address] [place] [address] documented in this encounter Visit Diagnoses Not on filedocumented in this encounter Care Teams Accessioner Relationship Specialty Start Date End Date Unknown, Provider, PCP - General 09/18/16 documented as of this encounter
--- OUTSIDE RECORDS SUMMARY | 2024-05-18 11:52 | XMS_ITS | Encounter Summary ---
Author Organization [facility] Address [address] [place] [address] Care Team Providers Care Topographical Engineer Name Role Phone Unknown, Provider Primary Care Provider [phone] Encounter Details Date Type Department Care Team (Late st Contact Info) Description 11/11/2020 Lab Requisition [facility] Pathology & Laboratory Medicine - [address] [address] Outr Resulting Lab, Provider Social History Tobacco [...] Comments ZZCOVID-19 TEST [facility] PCR Today 11/11/2020 9:00 EDT COVID-19 TESTING Routine 11/11/2020 9:00 EDT documented in this encounter Results * COVID-19 TEST [facility] PCR (11/11/2020 9:00 EDT) Swab ENTIRE NASOPHARYNX / Unknown 11/11/2020 9:00 EDT 11/11/2020 20:27 EDT Provider Outr Resulting Lab MICROBIOLOGY - GENERAL ORDERABLES [facility] [address] [place] [address] * COVID-19 TESTING (11/11/2020 9:00 EDT) COVID-19 rt-PCR Result Negative Negative 11/12/2020 0:56 EDT [facility] Comment: This test has [...] history, and epidemiological information. Performed on the [employer] Fusion instrument Performing Lab [place] [facility] Lab 11/12/2020 0:56 EDT [facility] Swab 11/11/2020 9:00 EDT 11/11/2020 20:27 EDT Provider Outr Resulting Lab MICROBIOLOGY - GENERAL ORDERABLES [facility] [address] [place] [address] documented in this encounter Visit Diagnoses Not on filedocumented in this encounter Care Teams Topographical Engineer Relationship Specialty Start Date End Date Unknown, Provider, PCP - General 09/18/16 documented as of this encounter
--- OUTSIDE RECORDS SUMMARY | 2024-05-18 11:52 | XMS_ITS | Encounter Summary ---
Author Organization [facility] Address [address] [place] [address] Care Team Providers Care Safety Deposit Supervisor Name Role Phone Unknown, Provider Primary Care Provider Encounter Details Date Type Department Care Team (Late st Contact Info) Description 09/16/2020 Lab Requisition [facility] Pathology & Laboratory Medicine - [address] [address] Outr Resulting Lab, Provider Social History Tobacco [...] Comments ZZCOVID-19 TEST [facility] LAB PCR Today 09/16/2020 9:00 EST COVID-19 TESTING Routine 09/16/2020 9:00 EST documented in this encounter Results * COVID-19 TEST [facility] PCR (09/16/2020 9:00 EST) Swab ENTIRE NASOPHARYNX / Unknown 09/16/2020 9:00 EST 09/16/2020 21:12 EST Provider Outr Resulting Lab MICROBIOLOGY - GENERAL ORDERABLES [facility] [address] [place] [address] * COVID-19 TESTING (09/16/2020 9:00 EST) COVID-19 rt-PCR Result Negative Negative 09/17/2020 14:59 EST [facility] Comment: This test has [...] developed and its performance characteristics determined by [facility]. It has not been cleared [...] defined by the FDA Performed on the Job[employer] 7 Flex RT-PCR System. Performing Lab [facility] Lab 09/17/2020 14:59 EST [facility] Swab 09/16/2020 9:00 EST 09/16/2020 21:12 EST Provider Outr Resulting Lab MICROBIOLOGY - GENERAL ORDERABLES [facility] [address] [place] [address] documented in this encounter Visit Diagnoses Not on filedocumented in this encounter Care Teams Safety Deposit Supervisor Relationship Specialty Start Date End Date Unknown, Provider, PCP - General 09/18/16 documented as of this encounter
--- OUTSIDE RECORDS SUMMARY | 2024-05-18 11:52 | XMS_ITS | Encounter Summary ---
Author Organization [facility] Address [address] [place] [address] Care Team Providers Care Metallurgical Engineering Teacher Name Role Phone Unknown, Provider Primary Care Provider [phone] Encounter Details Date Type Department Care Team (Late st Contact Info) Description 11/26/2020 Lab Requisition [facility] Pathology & Laboratory Medicine - [address] [phone] Outr Resulting Lab, Provider Social History Tobacco [...] Procedure Name Priority Date/Time Associated Diagnosis Comments HOLD SST Today 11/25/2020 10:15 EDT T3, TOTAL Today 11/25/2020 10:15 EDT THYROID ANTIBODIES Today 11/25/2020 10 :15 EDT documented in this encounter Results * HOLD SST (11/25/2020 10:15 EDT) Hold Hold 11/26/2020 17:02 EDT [facility] Blood VENOUS BLOOD / Unknown 11/25/2020 10:15 EDT 11/26/2020 15:46 EDT Provider Outr Resulting Lab LAB INFO SER VICE AND SUPPORT & PHONE RESULT [facility] [address] [place] [address] * T3, TOTAL (11/25/2020 10:15 EDT) T3, Total 132 97 - 169 ng/dL 11/26/2020 16:34 EDT [facility] Blood VENOUS BLOOD / Unknown 11/25/2020 10:15 EDT 11/26/2020 15:45 EDT Provider Outr Resulting Lab CHEMISTRY & BLOOD GAS ORDERABLES [facility] [address] [place] [address] * (ABNORMAL) THYROID ANTIBODIES (11/25/2020 10:15 EDT) Anti-Thyroglobulin 27 <=60 U/mL 2020 17:23 EDT [facility] Thyroperoxidase Ab >1,300(H) <=60 U/mL 2020 17:23 EDT [facility] Blood VENOUS BLOOD / Unknown 11/25/2020 10:15 EDT 11/26/2020 15:45 EDT Provider Outr Resulting Lab CHEMISTRY & BLOOD GAS ORDERABLES [facility] [address] [place] [address] documented in this encounter Visit Diagnoses Not on filedocumented in this encounter Care Teams Metallurgical Engineering Teacher Relationship Specialty Start Date End Date Unknown, Provider, PCP - General 09/18/16 documented as of this encounter
--- OUTSIDE RECORDS SUMMARY | 2024-05-18 11:52 | XMS_ITS | Referral Summary ---
Author Organization [facility] Address [address] [place] [address] Care Team Providers Care Lead Systems Developer Name Role Phone Unknown, Provider Primary Care Provider [phone] Social History Tobacco Use Types Packs/Day Years Used Date Smoking Tobacco: Never Assessed Sex and Gender Information Value Date Recorded Sex Assigned at Not on file Gender Identity Not on file Sexual Orientation Not on file Plan of Treatment Not on file Care Teams Lead Systems Developer Relationship Specialty Start Date End Date Unknown, Provider, PCP - General 09/18/16
--- OUTSIDE RECORDS SUMMARY | 2024-05-18 11:52 | XMS_ITS | Encounter Summary ---
Author Organization [facility] Address [address] [place] [address] Care Team Providers Care Market Editor Name Role Phone Unknown, Provider Primary Care Provider [phone] Encounter Details Date Type Department Care Team (Late st Contact Info) Description 08/05/2020 Lab Requisition [facility] Pathology & Laboratory Medicine - [facility] [address] [place] [address] Outr Resulting Lab, Provider Social History Tobacco [...] ORDER STANDALONE - BROAD COVID TEST Today 08/05/2020 9:00 EST COVID-19 TESTING Routine 08/05/2020 9:00 EST documented in this encounter Results * DO NOT ORDER STANDALONE - BROAD COVID TEST (08/05/2020 9:00 EST) COVID-19 rt-PCR Result NEGATIVE Negative 08/06/2020 20:46 EST [facility] Comment: 2019-novel Coronavirus [...] in accordance with CLIA regulations, College of [place] Pathologists (CAP) guidelines (Oct 12, 2019), and FDA guidance (Sep 23, 2019). This test is only for use under the Food and Drug Administration's Emergency Use Authorization. Swab ENTIRE NASOPHARYNX / Unknown 08/05/2020 9:00 EST 08/05/2020 21:06 EST Provider Outr Resulting Lab MICROBIOLOGY - GENERAL ORDERABLES [place], [place] * COVID-19 TESTING (08/05/2020 9:00 EST) COVID-19 rt-PCR Result NEGATIVE Negative 08/06/2020 21:50 EST [facility] Comment: 2019-novel Coronavirus (2019-nCoV) not detected [...] in accordance with CLIA regulations, College of Indian Pathologists (CAP) guidelines (Oct 12, 2019), and FDA guidance (Sep 23, 2019). This test is only for use under the Food and Drug Administration's Emergency Use Authorization. Performing Lab [facility] 08/06/2020 21:50 EST [facility] Swab 08/05/2020 9:00 EST 08/05/2020 21:06 EST Provider Outr Resulting Lab MICROBIOLOGY - GENERAL ORDERABLES [facility] [address] [place], [place] [id number] [place] [address] LABORATORY [place], [place] documented in this encounter Visit Diagnoses Not on filedocumented in this encounter Care Teams Market Editor Relationship Specialty Start Date End Date Unknown, Provider, PCP - General 09/18/16 documented as of this encounter
--- OUTSIDE RECORDS SUMMARY | 2024-05-18 11:52 | XMS_ITS | Encounter Summary ---
Author Organization [facility] Address [address] [place] [address] Care Team Providers Care Electrical Tester Name Role Phone Unknown, Provider Primary Care Provider [phone] Encounter Details Date Type Department Care Team (Late st Contact Info) Description 07/09/2020 Lab Requisition [facility] Pathology & Laboratory Medicine - [facility] [address] [place] [address] Outr Resulting Lab, Provider Social History Tobacco [...] ORDER STANDALONE - BROAD COVID TEST Today 07/08/2020 9:00 EST COVID-19 TESTING Routine 07/08/2020 9:00 EST documented in this encounter Results * DO NOT ORDER STANDALONE - BROAD COVID TEST (07/08/2020 9:00 EST) COVID-19 rt-PCR Result NEGATIVE Negative 07/11/2020 19:09 EST [facility] Comment: 2019-novel Coronavirus [...] in accordance with CLIA regulations, College of [place] Pathologists (CAP) guidelines (Oct 12, 2019), and FDA guidance (Sep 23, 2019). This test is only for use under the Food and Drug Administration's Emergency Use Authorization. Swab ENTIRE NASOPHARYNX / Unknown 07/08/2020 9:00 EST 07/09/2020 16:19 EST Provider Outr Resulting Lab MICROBIOLOGY - GENERAL ORDERABLES [employer] [place], [place] * COVID-19 TESTING (07/08/2020 9:00 EST) COVID-19 rt-PCR Result NEGATIVE Negative 07/11/2020 21:18 EST [facility] Comment: 2019-novel Coronavirus (2019-nCoV) not detected [...] in accordance with CLIA regulations, College of [place] Pathologists (CAP) guidelines (Oct 12, 2019), and FDA guidance (Sep 23, 2019). This test is only for use under the Food and Drug Administration's Emergency Use Authorization. Performing Lab [facility] 07/11/2020 21:18 EST [facility] Swab 07/08/2020 9:00 EST 07/09/2020 16:19 EST Provider Outr Resulting Lab MICROBIOLOGY - GENERAL ORDERABLES [facility] [address] [place], [place] [address] [place] [address] LABORATORY [place] documented in this encounter Visit Diagnoses Not on filedocumented in this encounter Care Teams Electrical Tester Relationship Specialty Start Date End Date Unknown, Provider, PCP - General 09/18/16 documented as of this encounter
--- OUTSIDE RECORDS SUMMARY | 2024-05-18 11:52 | XMS_ITS | Clinical Summary ---
Author Organization [facility] Address [address] [place] [address] Care Team Providers Care Surgical Appliances Salesperson Name Role Phone Unknown, Provider Primary Care Provider Social History Tobacco Use Types Packs/Day Years Used Date Smoking Tobacco: Never Assessed Sex and Gender Information Value Date Recorded Sex Assigned at Not on file Gender Identity Not on file Sexual Orientation Not on file Plan of Treatment Health Maintenance Due Date Last Done Comments Hepatitis C Screen 1965 Hepatitis B Vaccine (1 of 3 - 19+ 3-dose series) 06/24 COVID-19 Vaccine (2022- season) 2023 Care Teams Surgical Appliances Salesperson Relationship Specialty Start Date End Date Unknown, Provider, PCP - General 09/18/16
--- OUTSIDE RECORDS SUMMARY | 2024-05-18 11:52 | XMS_ITS | Encounter Summary ---
Author Organization [facility] Address [address] [place] [address] Care Team Providers Care Children'S Tutor Name Role Phone Unknown, Provider Primary Care Provider Encounter Details Date Type Department Care Team (Late st Contact Info) Description 10/07/2020 Lab Requisition [facility] Pathology & Laboratory Medicine - [address] [address] Outr Resulting Lab, Provider Social History Tobacco [...] Comments ZZCOVID-19 TEST [facility] PCR Today 10/07/2020 9:00 EDT COVID-19 TESTING Routine 10/07/2020 9:00 EDT documented in this encounter Results * COVID-19 TEST [facility] PCR (10/07/2020 9:00 EDT) Swab ENTIRE NASOPHARYNX / Unknown 10/07/2020 9:00 EDT 10/07/2020 22:14 EDT Provider Outr Resulting Lab MICROBIOLOGY - GENERAL ORDERABLES [facility] [address] [place] [address] * COVID-19 TESTING (10/07/2020 9:00 EDT) COVID-19 rt-PCR Result Negative Negative 10/08/2020 10:57 EDT [facility] Comment: This test has [...] was performed using the rocky SARS-CoV-2 assay ([employer] on the Rocky 6800 System Performing Lab [address] [facility] Lab 10/08/2020 10:57 EDT [facility] Swab 10/07/2020 9:00 EDT 10/07/2020 22:14 EDT Provider Outr Resulting Lab MICROBIOLOGY - GENERAL ORDERABLES [facility] [address] [place] [address] documented in this encounter Visit Diagnoses Not on filedocumented in this encounter Care Teams Children'S Tutor Relationship Specialty Start Date End Date Unknown, Provider, PCP - General 09/18/16 documented as of this encounter
--- OUTSIDE RECORDS SUMMARY | 2024-05-18 11:52 | XMS_ITS | Encounter Summary ---
Author Organization [facility] Address [address] [place] [address] Care Team Providers Care Shipyard Supervisor Name Role Phone Unknown, Provider Primary Care Provider Encounter Details Date Type Department Care Team (Late st Contact Info) Description 09/30/2020 Lab Requisition [facility] Pathology & Laboratory Medicine - [address] [address] Outr Resulting Lab, Provider Social History Tobacco [...] Comments ZZCOVID-19 TEST [facility] PCR Today 09/30/2020 15:21 EST COVID-19 TESTING Routine 09/30/2020 15:2 1 EST documented in this encounter Results * COVID-19 TEST [facility] PCR (09/30/2020 15:21 EST) Swab ENTIRE NASOPHARYNX / Unknown 09/30/2020 15:21 EST 09/30/2020 22:22 EST Provider Outr Resulting Lab MICROBIOLOGY - GENERAL ORDERABLES [facility] [address] [place] [address] * COVID-19 TESTING (09/30/2020 15:21 EST) COVID-19 rt-PCR Result Negative Negative 10/01/2020 12:20 EST [facility] Comment: This test has not [...] was performed using the rocky SARS-CoV-2 assay ([employer] on the Rocky 6800 System Performing Lab [address] [facility] Lab 10/01/2020 12:20 EST [facility] Swab 09/30/2020 15:2 1 EST 09/30/2020 22:22 EST Provider Outr Resulting Lab MICROBIOLOGY - GENERAL ORDERABLES [facility] [address] [place] [address] documented in this encounter Visit Diagnoses Not on filedocumented in this encounter Care Teams Shipyard Supervisor Relationship Specialty Start Date End Date Unknown, Provider, PCP - General 09/18/16 documented as of this encounter
[2024-05-18 19:44] LABS: Hemoglobin A1C 5.5 % (<5.7)
[2024-05-18 19:52] LABS: TSH 19.53 uIU/mL (0.36-3.74)
== END 2024-05-18 11:49 | disposition home or self-care (01) ==
LOC: NCHCN 11:48
PROVIDERS: PCP Internal Medicine; Visit Provider Nurse Practitioner Family
DX: E66.9 Obesity, unspecified (principal); E03.9 Hypothyroidism, unspecified
CPT/HCPCS: 83036; 84443

== ENCOUNTER 2024-10-12 10:15 | Outpatient (REF) | payer MEDICAID, SELFPAY ==
[2024-10-12 18:57] LABS: HCT 46.9 % (36.0-46.0); HGB 16.1 g/dL (11.2-15.7); MCH 30.5 pg (27.0-33.0); MCHC 34.3 % (32.0-36.0); MCV 89 fL (80-95); MPV 11.3 fL (8.0-11.0); Platelet Count 222 10^3/uL (130-400); RBC 5.28 10^6/uL (3.93-5.22); RDW 12.8 % (11.7-14.6); RDW-SD 41.6 fL; WBC 7.04 10^3/uL (4.4-10.8)
[2024-10-12 19:12] LABS: ALT 45 U/L (14-59); AST 38 U/L (15-37); Albumin 3.6 g/dL (3.4-5.0); Alkaline Phosphatase 109 U/L (46-116); Anion Gap 6.2 mmol/L (3-11); BUN 14 mg/dL (7-18); Bilirubin, Total 0.3 mg/dL (0.2-1.0); CO2 29.8 mmol/L (21.0-32.0); CREATININE 0.7 mg/dL (0.55-1.02); Calcium 8.9 mg/dL (8.5-10.1); Calculated LDL 116 mg/dL (<100); Chloride 107 mmol/L (98-107); Cholesterol 206 mg/dL (<200); Estimated GFR 98.95 (mL/min/1.73m2); Glucose 108 mg/dL (74-106); HDL Cholesterol 38 mg/dL (>or=50); Potassium 3.8 mmol/L (3.5-5.1); Sodium 143 mmol/L (136-145); TSH 5.87 uIU/mL (0.36-3.74); Total Protein 7.5 g/dL (6.4-8.2); Triglyceride 263 mg/dL (<150)
== END 2024-10-12 10:16 | disposition home or self-care (01) ==
LOC: NCHCN 10:15
PROVIDERS: PCP Internal Medicine; Visit Provider Nurse Practitioner Family
DX: E03.9 Hypothyroidism, unspecified (principal); R53.83 Other fatigue; E78.5 Hyperlipidemia, unspecified; I10 Essential (primary) hypertension
CPT/HCPCS: 80053; 80061; 85027; 84443

== ENCOUNTER 2024-12-28 11:10 | Outpatient (CLI) | payer MEDICAID, SELFPAY ==
--- NOTE | 2024-12-28 10:45 | DI.RAD_ITS ---
Exam(s) XR KNEE LT 4V AP,LAT,AMBER,PAT EXAM: XR KNEE LT 4V AP,LAT,AMBER,PAT CLINICAL HISTORY: left knee pain. TECHNIQUE: 2D digital imaging was performed of the left knee. Four images were obtained. Merchant, AP, lateral and PA tunnel views were obtained. COMPARISON: No exams were available for comparison FINDINGS: BONES: No acute fracture is present. No bony destructive lesion is seen. JOINTS: There is moderate narrowing of the medial femoral tibial joint space. There osteophytes seen at the posterior patella and the medial femoral tibial joint. No joint effusion is seen. No loose b virgen. SOFT TISSUE: Normal. IMPRESSION: Degenerative changes of the knee. DATA REPOSITORY: RADIATION DOSE DELIVERED:
--- NOTE | 2024-12-28 11:09 | DI.RAD_ITS ---
Exam(s) XR PELVIS AP EXAM: XR PELVIS AP CLINICAL HISTORY: LEFT KNEE PAIN. TECHNIQUE: 2D digital imaging was performed.One images were obtained. COMPARISON: No exams were available for comparison FINDINGS: BONES: No acute fracture is present. No bony destructive lesion is seen. JOINTS: No dislocation present. No joint space narrowing is present. The hips are well maintained as are the sacroiliac joints and symphysis pubis. SOFT TISSUE: There clips in the pelvis most consistent with tubal ligation. IMPRESSION: Unremarkable radiographs of the pelvis. DATA REPOSITORY: RADIATION DOSE DELIVERED:
== END 2024-12-28 11:11 | disposition home or self-care (01) ==
LOC: DIORS 11:10
PROVIDERS: PCP Internal Medicine; Referring Provider Internal Medicine; Visit Provider Student in an Organized Health Care Education/Training Program
DX: M25.562 Pain in left knee (principal); M17.12 Unilateral primary osteoarthritis, left knee
CPT/HCPCS: 72170; 73564

== ENCOUNTER 2025-01-22 09:40 | Outpatient (REF) | payer MEDICAID, SELFPAY ==
[2025-01-22 20:11] LABS: TSH 3.69 uIU/mL (0.36-3.74)
== END 2025-01-22 09:41 | disposition home or self-care (01) ==
LOC: NCHCN 09:40
PROVIDERS: PCP Internal Medicine; Visit Provider Nurse Practitioner Family
DX: E03.9 Hypothyroidism, unspecified (principal)
CPT/HCPCS: 84443